=== PATIENT | female | born 1960 | race Caucasian/White ===

== ENCOUNTER 2020-07-11 07:47 | Outpatient (REF) | payer OTHER, SELFPAY ==
[2020-07-11 07:56] LABS: MANUAL DIFF FLAG NO
[2020-07-11 08:20] LABS: Eosinophils Absolute Auto 0.1 X10*3/uL (0.0-0.4); Eosinophils Percent Auto 3.1 % (0-4); Hemoglobin 10.7 g/dl (12.0-16.0); Imm Gran Abs Auto 0.01 X10*3/uL (0.00-0.03); Imm Gran Pct Auto 0.3 % (0.0-0.4); Lymphocytes Absolute Auto 1.2 X10*3/uL (1.2-4.9); Lymphocytes Percent Auto 29.9 % (20-40); Mean Corpuscular HGB Conc 31.5 g/dl (31.0-35.0); Mean Corpuscular Hemoglobin 25.6 pg (27.0-33.0); Mean Corpuscular Volume 81.3 fL (80-98); Mean Platelet Volume 9.9 fL (9.4-12.3); Monocytes Absolute Auto 0.4 X10*3/uL (0.1-1.2); Monocytes Percent Auto 11.2 % (2-11); Neutrophils Absolute Auto 2.1 X10*3/uL (2.0-8.3); Neutrophils Percent Auto 54.5 % (45-73); Platelet Count 303 X10*3/uL (160-400); Red Blood Count 4.18 X10*6/uL (4.20-5.50); Red Cell Distribution Width 18.5 % (11.0-16.0); White Blood Count 3.8 X10*3/uL (4.8-10.8)
[2020-07-11 08:45] LABS: Alanine Aminotransferase 16 U/L (0-31); Alkaline Phosphatase 63 U/L (39-117); Anion Gap 11 (12-20); Aspartate Amino Transferase 19 U/L (5-31); Bilirubin Total 0.3 mg/dL (0.0-1.0); Blood Urea Nitrogen 13 mg/dL (9-16); Calcium 8.7 mg/dL (8.4-10.2); Carbon Dioxide 24 mmol/L (22-29); Chloride 104 mmol/L (96-108); Estimated Glomerular Filt Rate > 60; Glucose Random 91 mg/dL (60-115); Potassium 4.3 mmol/l (3.3-5.1); Sodium 135 mmol/L (135-145); Total Protein 5.8 g/dL (6.5-8.0)
[2020-07-11 09:18] LABS: Ferritin 89 ng/mL (10-250)
== END 2020-07-11 07:48 | disposition home or self-care (01) ==
LOC: HO.MDS 07:47
PROVIDERS: PCP Internal Medicine; Visit Provider Internal Medicine Medical Oncology
DX: D50.9 Iron deficiency anemia, unspecified (principal)
CPT/HCPCS: 36415; 80053; 82728; 85025; 96365; J2916

== ENCOUNTER 2021-04-05 12:24 | Outpatient (REF) | payer OTHER, SELFPAY ==
[2021-04-05 13:44] LABS: MANUAL DIFF FLAG NO
[2021-04-05 13:58] LABS: Basophils Absolute Auto 0.1 X10*3/uL (0.0-0.2); Eosinophils Absolute Auto 0.1 X10*3/uL (0.0-0.4); Eosinophils Percent Auto 2.4 % (0-4); Hematocrit 33.4 % (37-47); Imm Gran Abs Auto 0.01 X10*3/uL (0.00-0.03); Imm Gran Pct Auto 0.2 % (0.0-0.4); Lymphocytes Absolute Auto 1.3 X10*3/uL (1.2-4.9); Lymphocytes Percent Auto 24.9 % (20-40); Mean Corpuscular HGB Conc 32.9 g/dl (31.0-35.0); Mean Corpuscular Hemoglobin 29.1 pg (27.0-33.0); Mean Corpuscular Volume 88.4 fL (80-98); Mean Platelet Volume 9.9 fL (9.4-12.3); Monocytes Absolute Auto 0.7 X10*3/uL (0.1-1.2); Monocytes Percent Auto 13.7 % (2-11); Neutrophils Percent Auto 57.8 % (45-73); Platelet Count 325 X10*3/uL (160-400); Red Blood Count 3.78 X10*6/uL (4.20-5.50); Red Cell Distribution Width 14.1 % (11.0-16.0); White Blood Count 5.1 X10*3/uL (4.8-10.8)
[2021-04-05 14:19] LABS: Alanine Aminotransferase 18 U/L (0-31); Alkaline Phosphatase 72 U/L (39-117); Anion Gap 11 (12-20); Aspartate Amino Transferase 22 U/L (5-31); Blood Urea Nitrogen 17 mg/dL (9-16); Calcium 8.9 mg/dL (8.4-10.2); Carbon Dioxide 28 mmol/L (22-29); Chloride 98 mmol/L (96-108); Estimated Glomerular Filt Rate > 60; Glucose Random 76 mg/dL (60-115); Iron 54 mcg/dL (30-160); Percent Iron Saturation 14 % (15-50); Potassium 4.5 mmol/L (3.3-5.1); Sodium 132 mmol/L (135-145); Total Iron Binding Capacity 378 mcg/dL (228-428); Total Protein 5.7 g/dL (6.5-8.0); Unsaturated Iron Binding 324 ug/dL
[2021-04-05 14:35] LABS: Ferritin 21 ng/mL (10-250)
[2021-04-05 17:00] LABS: Bilirubin Total 0.2 mg/dL (0.0-1.0)
== END 2021-04-05 12:25 | disposition home or self-care (01) ==
LOC: HO.LAB 12:24
PROVIDERS: Visit Provider Internal Medicine Medical Oncology
DX: D50.9 Iron deficiency anemia, unspecified (principal)
CPT/HCPCS: 36415; 80053; 82728; 83540; 85025

== ENCOUNTER → 2021-04-06 08:27 | Outpatient (BNV) | payer OTHER, SELFPAY | PROVIDERS: PCP Internal Medicine; Visit Provider Internal Medicine Medical Oncology | DX: D50.9 Iron deficiency anemia, unspecified (principal) | CPT/HCPCS: 99212; 99213; 99214 ==

== ENCOUNTER 2021-04-21 13:06 | Outpatient (REF) | payer OTHER, SELFPAY | END 2021-04-21 13:07 | disposition home or self-care (01) | LOC: HO.MDS 13:06 | PROVIDERS: Visit Provider Internal Medicine Medical Oncology | DX: D50.9 Iron deficiency anemia, unspecified (principal) | CPT/HCPCS: 96365; J1439 ==

== ENCOUNTER 2021-05-01 08:02 | Outpatient (REF) | payer OTHER, SELFPAY | END 2021-05-01 08:03 | disposition home or self-care (01) | LOC: HO.MDS 08:02 | PROVIDERS: Visit Provider Internal Medicine Medical Oncology | DX: D50.9 Iron deficiency anemia, unspecified (principal) | CPT/HCPCS: 96365; J1439 ==

== ENCOUNTER 2021-10-18 08:27 | Outpatient (REF) | payer OTHER, SELFPAY | END 2021-10-18 08:28 | disposition home or self-care (01) | LOC: HO.MDS 08:27 | PROVIDERS: Visit Provider Internal Medicine Medical Oncology | DX: D50.9 Iron deficiency anemia, unspecified (principal); K51.90 Ulcerative colitis, unspecified, without complications | CPT/HCPCS: 96365; J1439 ==

== ENCOUNTER 2021-10-26 07:30 | Outpatient (REF) | payer OTHER, SELFPAY | END 2021-10-26 07:31 | disposition home or self-care (01) | LOC: HO.MDS 07:30 | PROVIDERS: Visit Provider Internal Medicine Medical Oncology | DX: D50.9 Iron deficiency anemia, unspecified (principal) | CPT/HCPCS: 96365; J1439 ==

== ENCOUNTER 2022-01-15 13:24 | Outpatient (REF) | payer OTHER, SELFPAY | END 2022-01-15 13:25 | disposition home or self-care (01) | LOC: HO.MDS 13:24 | PROVIDERS: Visit Provider Internal Medicine Medical Oncology | DX: D50.9 Iron deficiency anemia, unspecified (principal) | CPT/HCPCS: 96365; J1439 ==

== ENCOUNTER 2022-01-24 07:36 | Outpatient (REF) | payer OTHER, SELFPAY | END 2022-01-24 07:37 | disposition home or self-care (01) | LOC: HO.MDS 07:36 | PROVIDERS: Visit Provider Internal Medicine Medical Oncology | DX: D50.9 Iron deficiency anemia, unspecified (principal); G25.81 Restless legs syndrome | CPT/HCPCS: 96365; J1439 ==

== ENCOUNTER 2022-11-16 08:26 | Outpatient (AMB) | payer OTHER, SELFPAY ==
--- NOTE | 2022-11-16 08:29 | A.OFFPC_ITS ---
Vital Signs 11/16/22 08:31 Height 5 ft 7 in Weight 126 lb BMI 19.7 BP 112/64 Blood Pressure Location Lt brachial Position Sitting Pulse 67 Pulse Oximetry (%) 99 Oxygen Delivery Method Room Air Intake Visit Reasons: Physical exam Intake Note: Pt is here today for her PE Allergies No Known Allergies (No Known Allergies*) Allergy (Verified 10/13/25 13:01) Tobacco use date assessed: 11/16/22 [facility] Medical History Bilateral bunions Cervical cancer screening Immunization refused Facial basal cell cancer Osteoarthritis of hip Iron deficiency anemia Ulcerative colitis Hordeolum externum (stye) Surgical History Hx of colonoscopy H/O total colectomy H/O abdominal surgery History of total replacement of both hip joints Status post Mohs surgery for basal cell carcinoma Hx of colectomy History of left hip replacement Family History Sister Multiple sclerosis Alcoholism Substance use disorder Mental health disorder Father Hypertension Substance use disorder Brother Lymphoma Substance use disorder Mental health disorder Paternal Aunt Substance use disorder Social History Household Members: Spouse Housing: House Are you a primary hospice care sales consultant to a significant other at home: No Do you presently have visiting nurse or other home services: No Alcohol intake: never Patient Tobacco Use Status: Never used Tobacco e-Cigarette/Vaping Use: Never Used Second Hand Smoke Exposure: No Use of substances other than those prescribed or required for medical reasons: No Have you been hit, kicked, punched, or otherwise hurt by someone within the past year? If so, by whom?: No Are you DNR?: No Advance Directives: No Advance Directives Information Provided: Yes Advance Directives on File: No Patient : No : No service: No Current occupational status: employed Cognitive needs: No Hearing needs: No Vision needs: Yes Questionnaire PHQ-9 Over the last 2 weeks, how often have you been bothered by any of the following problems? 1. Little interest or pleasure in doing things: not at all 2. Feeling down, depressed, or hopeless: not at all 3. Trouble falling or staying asleep, or sleeping too much: not at all 4. Feeling tired or having little energy: not at all 5. Poor appetite or overeating: not at all 6. Feeling bad about yourself - or that you are a failure or have let yourself or your family down: not at all 7. Trouble concentrating on things, such as reading the newspaper or watching television: not at all 8. Moving or speaking so slowly that other people could have noticed. Or the opposite - being so fidgety or restless that you have been moving around a lot more than usual: not at all 9. Thoughts that you would be better off or of hurting yourself in some way: not at all Total score: 0 Source: Developed by Drs. Braulio Huddleston, Codie Lee, Kobi Negron and colleagues, with an educational ismael from [employer]. Thrive Questionnaire Date Thrive assessed: 11/16/22 I am a: Patient What is your living situation today?: I have a steady place to live Within the past 12 months, did the food you bought not last and you didn't have the money to get more?: Never true Within the past 12 months, did you worry whether your food would run out before you got money to buy more?: Never true Do you have trouble paying for medicines?: No Do you have trouble getting transportation to medical appointments?: No Do you have trouble paying your heating and electricity bill?: No Do you have trouble taking care of your child, family member or friend?: No Do you have trouble with day-to-day activities such as bathing, preparing meals, shopping, managing finances, etc.?: No Are you currently unemployed and looking for a job?: No Are you interested in more education?: No AUDIT C Alcohol Use Questionnaire (AUDIT-C) 1. How often do you have a drink containing alcohol?: Monthly or less 2. How many drinks containing alcohol do you have on a typical day when you are drinking?: 1 or 2 3. How often do you have six or more drinks on one occasion?: Never Total Score: 1 CHRISTIANO-7 AMB Questionnaire CHRISTIANO-7 Date CHRISTIANO - 7 assessed: 02/10/23 Feeling nervous, anxious, or on edge: 0 = Not at all Not being able to stop or control worryin = Not at all Worrying too much about different things: 0 = Not at all Trouble relaxin = Not at all Being so restless that it is hard to sit still: 0 = Not at all Becoming easily annoyed or irritable: 0 = Not at all Feeling afraid as if something awful might happen: 0 = Not at all Total CHRISTIANO-7 score (0-4 normal; 5-9 mild; 10-14 moderate; 15-21 severe): 0 Source: Developed by Drs. Braulio Huddleston, Codie Lee, Kobi Negron and colleagues, with an educational ismael from [employer]. Physical exam (Primary Care) Vital Signs: Last Vital Signs Pulse 67 11/16/22 08:31 BP 112/64 11/16/22 08:31 Pulse Ox 99 11/16/22 08:31 Oxygen Delivery Method Room Air 11/16/22 08:31 BMI result Body Mass Index 19.7 Tobacco/Smoking Status: Tobacco use Status Tobacco use date assessed 11/16/22 11/16/22 08:31 Patient Tobacco Use Status Never used Tobacco 11/16/22 08:35 e-Cigarette/Vaping Use Never Used 11/16/22 08:35 PHQ-9: PHQ-9 Score PHQ-9: Total score 0 11/20/23 16:37 Thrive Assessment: Date of Thrive Assessment Date Thrive assessed 11/16/22 11/16/22 08:42 Coding Level of Care Code Admin Sign Off/No Billing Diagnoses Iron deficiency anemia D50.9 Ulcerative colitis K51.90 Annual visit for general adult medical examination with abnormal findings Z00.01 Cervical cancer screening Z12.4
[2022-11-16 08:31] VITALS: BP 112/64; PULSE 67; O2SAT 99; BMI 19.7
--- NOTE | 2022-11-16 08:46 | A.OFFPC_ITS ---
Vital Signs 11/16/22 08:31 Height 5 ft 7 in Weight 126 lb BMI 19.7 BP 112/64 Blood Pressure Location Lt brachial Position Sitting Pulse 67 Pulse Oximetry (%) 99 Oxygen Delivery Method Room Air Intake Visit Reasons: Physical exam Allergies No Known Allergies [No Known Allergies*] Allergy (Verified 11/16/22 08:29) Tobacco use date assessed: 11/16/22 [facility] Medical History (Updated 11/16/22 @ 13:55 by Opal Velazquez MD) Cervical cancer screening Facial basal cell cancer Hordeolum externum (stye) Immunization refused Iron deficiency anemia Osteoarthritis of hip Ulcerative colitis Surgical History (Updated 11/16/22 @ 09:30 by Opal Velazquez MD) History of left hip replacement History of total replacement of both hip joints Hx of colectomy Status post Mohs surgery for basal cell carcinoma Family History Sister Multiple sclerosis Alcoholism Father Hypertension Brother Lymphoma Social History Housing: House Alcohol intake: never Patient Tobacco Use Status: Never used Tobacco e-Cigarette/Vaping Use: Never Used service: No Current occupational status: employed Cognitive needs: No Hearing needs: No Vision needs: Yes Questionnaire PHQ-9 Over the last 2 weeks, how often have you been bothered by any of the following problems? 1. Little interest or pleasure in doing things: not at all 2. Feeling down, depressed, or hopeless: not at all 3. Trouble falling or staying asleep, or sleeping too much: not at all 4. Feeling tired or having little energy: not at all 5. Poor appetite or overeating: not at all 6. Feeling bad about yourself - or that you are a failure or have let yourself or your family down: not at all 7. Trouble concentrating on things, such as reading the newspaper or watching television: not at all 8. Moving or speaking so slowly that other people could have noticed. Or the opposite - being so fidgety or restless that you have been moving around a lot more than usual: not at all 9. Thoughts that you would be better off or of hurting yourself in some way: not at all Total score: 0 Source: Developed by Drs. Braulio Huddleston, Kobi Snow and colleagues, with an educational ismael from [employer]. Thrive Questionnaire Declines Thrive assessment: No Date Thrive assessed: 11/16/22 I am a: Patient What is your living situation today?: I have a steady place to live Within the past 12 months, did the food you bought not last and you didn't have the money to get more?: Never true Within the past 12 months, did you worry whether your food would run out before you got money to buy more?: Never true Do you have trouble paying for medicines?: No Do you have trouble getting transportation to medical appointments?: No Do you have trouble paying your heating and electricity bill?: No Do you have trouble taking care of your child, family member or friend?: No Do you have trouble with day-to-day activities such as bathing, preparing meals, shopping, managing finances, etc.?: No Are you currently unemployed and looking for a job?: No Are you interested in more education?: No AUDIT C Alcohol Use Questionnaire (AUDIT-C) 1. How often do you have a drink containing alcohol?: Monthly or less 2. How many drinks containing alcohol do you have on a typical day when you are drinking?: 1 or 2 3. How often do you have six or more drinks on one occasion?: Never Total Score: 1 CHRISTIANO-7 AMB Questionnaire CHRISTIANO-7 Date CHRISTIANO - 7 assessed: 11/16/22 Feeling nervous, anxious, or on edge: 0 = Not at all Not being able to stop or control worryin = Not at all Worrying too much about different things: 0 = Not at all Trouble relaxin = Not at all Being so restless that it is hard to sit still: 0 = Not at all Becoming easily annoyed or irritable: 0 = Not at all Feeling afraid as if something awful might happen: 0 = Not at all Total CHRISTIANO-7 score (0-4 normal; 5-9 mild; 10-14 moderate; 15-21 severe): 0 Source: Developed by Codie Thomas Kurt Kroenke and colleagues, with an educational ismael from [employer]. Review of Systems Const Denies chills, Denies fever(s) and Denies headache(s) Eyes Details: Sees Dr. Harris at [facility] Denies change in vision and Denies eye discharge ENT Reports no additional complaints and Denies headache(s) Card Reports no additional complaints Resp Reports no additional complaints GI Denies abdominal pain, Reports bloating (Occasional), Denies change in bowel habits, Denies dyspepsia and Denies heartburn Reports change in libido, Denies difficulty voiding, Denies nocturia, Denies urinary incontinence, Denies urinary urgency and Reports vaginal dryness Neuro Denies headache(s) Psych Reports change in libido Endo Reports change in libido Leandro/Lymph Reports no additional complaints Aller/Immun Reports no additional complaints Physical exam (Primary Care) Vital Signs: Last Vital Signs Pulse 67 11/16/22 08:31 BP 112/64 11/16/22 08:31 Pulse Ox 99 11/16/22 08:31 Oxygen Delivery Method Room Air 11/16/22 08:31 BMI result Body Mass Index 19.7 Tobacco/Smoking Status: Tobacco use Status Tobacco use date assessed 11/16/22 11/16/22 08:46 Patient Tobacco Use Status Never used Tobacco 11/16/22 08:46 e-Cigarette/Vaping Use Never Used 11/16/22 08:46 PHQ-9: PHQ-9 Score PHQ-9: Total score 0 11/16/22 09:19 Thrive Assessment: Date of Thrive Assessment Date Thrive assessed 11/16/22 11/16/22 08:46 Const General: cooperative, healthy appearing, comfortable and no acute distress Nutritional Appearance: average body habitus Orientation/consciousness: patient oriented x3 HENMT Ears: hearing grossly normal bilaterally, external ears normal, TM's normal bilaterally and EAC's normal General nose exam: Normal external nose present Face and sinus: Yes face symmetric Mouth: Normal oral and palatal mucosa present and oropharynx normal Cardio Bruits: no abdominal aortic bruits GI Inspection: Yes normal to inspection Palpation (GI): No Abdominal aortic bruit present, Soft to palpation, nontender, no guarding and no masses Auscultation: normal bowel sounds Other: Flattened vaginal mucosa, scant vaginal discharge General: Yes bladder normal to palpation and Yes no CVA tenderness External Female Exam: normal external appearance and normal appearance of the urethra Speculum Exam - Vagina: normal appearance of the vagina and normal palpation Speculum Exam - Cervix: normal appearance of the cervix, normal palpation, Cervical os open and nontender Bimanual exam- vagina & uterus: normal palpation, bladder normal to palpation, normal palpation and No Cervical tenderness present Bimanual Exam- Adnexa, other: normal adnexae, no masses, normal and No adnexal tenderness OB/external & speculum: Cervical os open Back/Spine/Pelvis Back: no CVA tenderness Skin Other: Sees [facility] yearly General skin exam: no rashes or lesions noted Neuro General: patient oriented x3, gait normal, tone normal, moves all extremities, Normal light touch and pain sensation, no focal motor deficits and CN's II-XI intact bilaterally Gait exam (Neuro): Normal gait present Extrem Other: Well-healed surgical scar in both hip status post THR bilateral General: Yes normal to inspection, Yes full ROM, Yes no joint enlargement, Yes no clubbing, cyanosis or edema, Yes no calf tenderness and Yes normal gait Psych Appearance: grossly normal and well kempt Mental Status: mental status grossly normal Speech and movement: Normal speech and movement present Affect: normal affect Attitude: cooperative Thought process: Normal thought process present Thought content: Normal thought content present Assessment and Plan Assessment & Plan (1) Annual visit for general adult medical examination with abnormal findings: Code(s): Z00.01 - Encounter for general adult medical examination with abnormal findings Plan: Will check appropriate labs. Continue with dental visit every 6 months and regular eye exams, at least every 2 years, sees Dr. Harris at [facility]. Take adequate calcium in diet and vitamin-D 3 at 2000 IU per cap once a day, in addition to weight-bearing exercises to help maintain good muscle tone and weight control. Continue to do self-breast exam, and screening mammogram and bone density scan ordered, patient wants to get this done at [facility]. Does not want to get any vaccines. Has an appointment with a colorectal surgeon for follow-up at [facility]. Cervical Cancer screening done today (2) Iron deficiency anemia: Code(s): D50.9 - Iron deficiency anemia, unspecified Plan: CBC, iron profile ferritin ordered. Continue taking ferrous sulfate (3) Ulcerative colitis: Code(s): K51.90 - Ulcerative colitis, unspecified, without complications Plan: Patient has an appointment to see colorectal surgeon at [facility] Dr. Patricia Chapin for follow-up (4) Immunization refused: Code(s): Z28.21 - Immunization not carried out because of patient refusal (5) Cervical cancer screening: Code(s): Z12.4 - Encounter for screening for malignant neoplasm of cervix Coding Level of Care Code Est Pt Prev Care 40-64y([id number]) Diagnoses Annual visit for general adult medical examination with abnormal findings Z00.01 Iron deficiency anemia D50.9 Ulcerative colitis K51.90 Immunization refused Z28.21 Cervical cancer screening Z12.4
== END 2022-11-16 09:20 | disposition home or self-care (01) ==
LOC: HO.HMGC 08:26
PROVIDERS: PCP Internal Medicine; Visit Provider Internal Medicine
DX: D50.9 Iron deficiency anemia, unspecified (principal); K51.90 Ulcerative colitis, unspecified, without complications; Z00.01 Encounter for general adult medical examination with abnormal findings; Z12.4 Encounter for screening for malignant neoplasm of cervix
CPT/HCPCS: 99499

== ENCOUNTER 2022-11-16 08:49 | Outpatient (REF) | payer OTHER, SELFPAY ==
[2022-11-20 04:18] LABS: HPV mRNA E6/E7 rflx Not Detected (Not Detected)
== END 2022-11-16 08:50 | disposition home or self-care (01) ==
LOC: HO.LAB 08:49
PROVIDERS: Visit Provider Internal Medicine
DX: Z12.4 Encounter for screening for malignant neoplasm of cervix (principal); Z11.51 Encounter for screening for human papillomavirus (HPV)
CPT/HCPCS: 87624; 88142

== ENCOUNTER 2022-11-16 09:25 | Outpatient (REF) | payer OTHER, SELFPAY ==
[2022-11-16 11:33] LABS: MANUAL DIFF FLAG NO
[2022-11-16 11:48] LABS: Basophils Percent Auto 0.8 % (0-2); Eosinophils Absolute Auto 0.1 X10*3/uL (0.0-0.4); Eosinophils Percent Auto 1.8 % (0-4); Hematocrit 37.5 % (37.0-47.0); Hemoglobin 12.6 g/dl (12.0-16.0); Imm Gran Abs Auto 0.03 X10*3/uL (0.00-0.03); Imm Gran Pct Auto 0.8 % (0.0-0.4); Lymphocytes Percent Auto 24.4 % (20-40); Mean Corpuscular HGB Conc 33.6 g/dl (31.0-35.0); Mean Corpuscular Hemoglobin 29.6 pg (27.0-33.0); Mean Corpuscular Volume 88.2 fL (80.0-98.0); Mean Platelet Volume 9.9 fL (9.4-12.3); Monocytes Absolute Auto 0.5 X10*3/uL (0.1-1.2); Monocytes Percent Auto 13.4 % (2-11); Neutrophils Absolute Auto 2.3 x10*3/uL (2.0-8.3); Neutrophils Percent Auto 58.8 % (45-73); Platelet Count 312 X10*3/uL (160-400); Red Blood Count 4.25 X10*6/uL (4.20-5.50); Red Cell Distribution Width 13.1 % (11.0-16.0); White Blood Count 3.9 X10*3/uL (4.8-10.8)
[2022-11-16 12:34] LABS: Alanine Aminotransferase 16 U/L (0-31); Anion Gap 13 (12-20); Aspartate Amino Transferase 20 U/L (5-31); Blood Urea Nitrogen 8 mg/dL (9-16); Calcium 9.3 mg/dL (8.4-10.2); Carbon Dioxide 25 mmol/L (22-29); Chloride 101 mmol/L (96-108); Cholesterol 240 mg/dL; Estimated Glomerular Filt Rate > 60; Glucose Fasting 97 mg/dL (60-99); HDL Cholesterol 99 mg/dL; Iron 47 mcg/dL (30-160); LDL Cholesterol Calculated 128 mg/dl; Percent Iron Saturation 18 % (15-50); Potassium 4.5 mmol/L (3.3-5.1); Sodium 134 mmol/L (135-145); Total Iron Binding Capacity 262 mcg/dL (228-428); Triglycerides 65 mg/dL; Unsaturated Iron Binding 215 ug/dL
[2022-11-16 12:52] LABS: Ferritin 381 ng/mL (10-250); Folate > 20.0 ng/mL (> or = 4.0); Vitamin B12 772 pg/mL (200-900)
== END 2022-11-16 09:26 | disposition home or self-care (01) ==
LOC: HO.HMGCLDS 09:25
PROVIDERS: PCP Internal Medicine; Visit Provider Internal Medicine
DX: Z00.01 Encounter for general adult medical examination with abnormal findings (principal); D50.9 Iron deficiency anemia, unspecified; K51.90 Ulcerative colitis, unspecified, without complications; N95.1 Menopausal and female climacteric states
CPT/HCPCS: 36415; 80048; 80061; 82306; 82607; 82728; 82746; 83540; 84450; 84460; 85025

== ENCOUNTER 2023-07-23 08:27 | Outpatient (REF) | payer OTHER, SELFPAY | END 2023-07-23 08:28 | disposition home or self-care (01) | LOC: HO.MDS 08:27 | PROVIDERS: Visit Provider Internal Medicine Medical Oncology | DX: D50.8 Other iron deficiency anemias (principal) | CPT/HCPCS: 96365; J1439 ==

== ENCOUNTER 2023-07-30 08:11 | Outpatient (REF) | payer OTHER, SELFPAY | END 2023-07-30 08:12 | disposition home or self-care (01) | LOC: HO.MDS 08:11 | PROVIDERS: Visit Provider Internal Medicine Medical Oncology | DX: D50.8 Other iron deficiency anemias (principal) | CPT/HCPCS: 96365; J1439 ==

== ENCOUNTER 2023-11-21 07:57 | Outpatient (AMB) | payer OTHER, SELFPAY ==
--- NOTE | 2023-11-21 08:02 | A.OFFPC_ITS ---
Vital Signs 11/21/23 08:03 Height 5 ft 7 in Weight 124 lb BMI 19.4 BP 100/68 Blood Pressure Location Rt brachial Position Sitting Pulse 69 Pulse Source Pulse Oximeter Pulse Oximetry (%) 100 Oxygen Delivery Method Room Air Intake Visit Reasons: Physical exam Intake Note: Pt is here for her Annual PE pt had mammo last year at [facility] pt does not due colon screen she does pouch screening Allergies No Known Allergies [No Known Allergies*] Allergy (Verified 11/21/23 08:15) Medication List - Last Reconciled 11/21/23 by Opal Velazquez MD B-complex with vitamin C 1 tab PO DAILY ferrous sulfate 325 mg PO DAILY multivitamin 1 tab PO DAILY omega-3 fatty acids 500 mg PO DAILY pramipexole 0.25 mg PO BEDTIME Tobacco use date assessed: 11/21/23 Dental Screening Dental Screen Date: 11/21/23 Did you have a dental visit in the last 12 months?: Yes Did you have a dental problem in the last 6 months where you did not have access to dental care?: No Was dental information given to patient?: Patient has dentist HPI Physical exam HPI Details 63-year-old lady here today for physical exam. She is up-to-date with her screening mammogram and cervical cancer screening, done last year. She has history of osteoarthritis, status post right and left total hip arthroplasty and has history of basal cell CA status post Mohs surgery. She has history of ulcerative colitis underwent laparoscopic proctocolectomy with ileal pouch anal anastomosis over a decade ago, complicated by partial small-bowel obstruction for 5 weeks which required return to the operating room for exploration and reversal of her ileostomy. She has since then had multiple admissions for intermittent small-bowel obstruction. She was admitted last January 2023 for elective surgery and underwent diagnostic laparoscopy and found to have adhesions in her small bowel for which she underwent lysis of adhesions with Dr. Chapin. She again was seen at [facility] 08/2023 for severe lower abdominal pain and bloating and found to have small-bowel volvulus with early obstruction, which shows treated with NG tube decompression of bowel. At present she is feeling better, has been very careful with her diet, weeks year old meals, stays active. [facility] Medical History (Updated 11/24/23 @ 23:11 by Opal Velazquez MD) Cervical cancer screening Immunization refused Facial basal cell cancer Osteoarthritis of hip Iron deficiency anemia Ulcerative colitis Hordeolum externum (stye) Surgical History (Updated 11/21/23 @ 08:39 by Opal Velazquez MD) H/O total colectomy H/O abdominal surgery History of total replacement of both hip joints Status post Mohs surgery for basal cell carcinoma Hx of colectomy History of left hip replacement Family History Sister Multiple sclerosis Alcoholism Father Hypertension Brother Lymphoma Social History Housing: House Alcohol intake: never Patient Tobacco Use Status: Never used Tobacco e-Cigarette/Vaping Use: Never Used service: No Current occupational status: employed Cognitive needs: No Hearing needs: No Vision needs: Yes Questionnaire PHQ-9 Over the last 2 weeks, how often have you been bothered by any of the following problems? 1. Little interest or pleasure in doing things: not at all 2. Feeling down, depressed, or hopeless: not at all 3. Trouble falling or staying asleep, or sleeping too much: not at all 4. Feeling tired or having little energy: not at all 5. Poor appetite or overeating: not at all 6. Feeling bad about yourself - or that you are a failure or have let yourself or your family down: not at all 7. Trouble concentrating on things, such as reading the newspaper or watching television: not at all 8. Moving or speaking so slowly that other people could have noticed. Or the opposite - being so fidgety or restless that you have been moving around a lot more than usual: not at all 9. Thoughts that you would be better off or of hurting yourself in some way: not at all Total score: 0 Depression Screening Interpretation: Negative Depression Screening Done: Yes Source: Developed by Drs. Braulio Huddleston, Codie Lee, Kobi Negron and colleagues, with an educational ismael from [employer]. Thrive Questionnaire Date Thrive assessed: 11/21/23 I am a: Patient What is your living situation today?: I have a steady place to live Within the past 12 months, did the food you bought not last and you didn't have the money to get more?: Never true Within the past 12 months, did you worry whether your food would run out before you got money to buy more?: Never true Do you have trouble paying for medicines?: No Do you have trouble getting transportation to medical appointments?: No Do you have trouble paying your heating and electricity bill?: No Do you have trouble taking care of your child, family member or friend?: No Do you have trouble with day-to-day activities such as bathing, preparing meals, shopping, managing finances, etc.?: No Are you currently unemployed and looking for a job?: No Are you interested in more education?: No THRIVE Score: 0 AUDIT C Alcohol Use Questionnaire (AUDIT-C) 1. How often do you have a drink containing alcohol?: Monthly or less 2. How many drinks containing alcohol do you have on a typical day when you are drinking?: 1 or 2 3. How often do you have six or more drinks on one occasion?: Never Total Score: 1 CHRISTIANO-7 AMB Questionnaire CHRISTIANO-7 Date CHRISTIANO - 7 assessed: 11/21/23 Feeling nervous, anxious, or on edge: 0 = Not at all Not being able to stop or control worryin = Not at all Worrying too much about different things: 0 = Not at all Trouble relaxin = Not at all Being so restless that it is hard to sit still: 0 = Not at all Becoming easily annoyed or irritable: 0 = Not at all Feeling afraid as if something awful might happen: 0 = Not at all Total CHRISTIANO-7 score (0-4 normal; 5-9 mild; 10-14 moderate; 15-21 severe): 0 Source: Developed by Drs. Braulio Huddleston, Codie Lee, Kobi Negron and colleagues, with an educational ismael from [employer]. CHRISTIANO-7 Assessment Billing CHRISTIANO-7 Assessment Tool: CHRISTIANO-7 Assessment 81551 Review of Systems Const Denies chills, Denies fever(s) and Denies headache(s) Eyes Denies change in vision ENT Denies dysphagia and Denies headache(s) Resp Reports no additional complaints GI Denies abdominal pain, Denies melena, Denies bloating, Denies hematochezia, Denies dysphagia, Denies excessive flatus and Denies heartburn Reports no additional complaints Musc Reports no additional complaints Skin/Breast Denies breast swelling, Denies breast pain, Denies breast mass, Denies dry skin and Denies rash Neuro Denies headache(s) Psych Reports no additional complaints Endo Reports no additional complaints Leandro/Lymph Reports no additional complaints Aller/Immun Reports no additional complaints Physical exam (Primary Care) Vital Signs: Last Vital Signs Pulse 69 11/21/23 08:03 BP 100/68 11/21/23 08:03 Pulse Ox 100 11/21/23 08:03 Oxygen Delivery Method Room Air 11/21/23 08:03 BMI result Body Mass Index 19.4 Tobacco/Smoking Status: Tobacco use Status Tobacco use date assessed 11/21/23 11/21/23 08:12 Patient Tobacco Use Status Never used Tobacco 11/21/23 08:02 e-Cigarette/Vaping Use Never Used 11/21/23 08:02 PHQ-9: PHQ-9 Score PHQ-9: Total score 0 11/21/23 08:55 Depression Screening Interpretation: Negative Thrive Assessment: Date of Thrive Assessment Date Thrive assessed 11/21/23 11/21/23 08:14 Const General: no acute distress and alert Nutritional Appearance: average body habitus Orientation/consciousness: patient oriented x3 HENMT Head: Yes normocephalic and Yes atraumatic Ears: external ears normal, TM's normal bilaterally and EAC's normal General nose exam: Normal external nose present and No nasal discharge present Face and sinus: Yes face symmetric Mouth: Normal oral and palatal mucosa present, lip normal, tongue normal, oropharynx normal and moist mucous membranes Eyes General: appearance normal, both eyes and all related structures Eyelids: Yes eyelids normal Conjunctivae: conjunctivae normal Sclerae: sclerae normal Pupils: Equal, round and reactive pupils present EOM: EOMs intact bilaterally Neck Neck: Yes full ROM, Yes no lymphadenopathy and Yes supple Thyroid: Thyroid normal Chest Chest palpation & inspection: normal inspection of the chest Breast/axilla inspection: normal inspection of the breasts Breast/axilla palpation: normal palpation of the breasts Resp Effort & Inspection: normal respiratory effort and able to speak in complete sentences Auscultation: clear to auscultation bilaterally Cardio Rate: regular rate Rhythm: regular rhythm Heart sounds: S1 normal heart sound present and S2 normal heart sound present GI Palpation (GI): Soft to palpation, nontender, no guarding and no masses Auscultation: normal bowel sounds General: Yes no CVA tenderness Back/Spine/Pelvis Back: no CVA tenderness and No back tenderness Skin General skin exam: no rashes or lesions noted Neuro General: patient oriented x3, gait normal, moves all extremities, Normal light touch and pain sensation, no focal motor deficits and CN's II-XI intact bilaterally Cranial nerves: Yes Equal, round and reactive pupils present Cognition (Neuro): normal cognition Gait exam (Neuro): Normal gait present Motor exam (neuro): 5/5 motor strength present throughout Extrem General: Yes normal to inspection, Yes full ROM, Yes no joint enlargement, Yes no pedal edema and Yes normal gait Psych Appearance: grossly normal and well kempt Mental Status: mental status grossly normal Speech and movement: Normal speech and movement present Affect: normal affect Attitude: cooperative Thought process: Normal thought process present Thought content: Normal thought content present Assessment and Plan Assessment & Plan (1) Annual visit for general adult medical examination with abnormal findings: Code(s): Z00.01 - Encounter for general adult medical examination with abnormal findings Plan: Will check appropriate labs. Continue regular dental visit every 6 months and regular eye exams, at least every 2 years. Take adequate calcium in diet and vitamin-D 3 at 2000 IU per cap once a day, in addition to weight-bearing exercises to help maintain good muscle tone and weight control. Instructed to do self-breast exam, and get yearly mammogram, currently up-to-date. Also up-to-date with her cervical cancer screening. Declines getting vaccines. (2) Iron deficiency anemia: Code(s): D50.9 - Iron deficiency anemia, unspecified Qualifiers: Iron deficiency anemia type: other iron deficiency Qualified Code(s): D50.8 - Other iron deficiency anemias Plan: Ordered a repeat CBC and iron profile (3) Ulcerative colitis: Comment: Status post total colectomy with J-pouch Code(s): K51.90 - Ulcerative colitis, unspecified, without complications Qualifiers: Digestive disease complication type: other complication Ulcerative colitis location: unspecified ulcerative colitis location Qualified Code(s): K51.918 - Ulcerative colitis, unspecified with other complication Plan: Will check CBC with differential, vitamin B12 folic acid and vitamin-D level (4) Immunization refused: Code(s): Z28.21 - Immunization not carried out because of patient refusal Plan: Will check CBC vitamin, B12 and folic acid (5) H/O total colectomy: Code(s): Z90.49 - Acquired absence of other specified parts of digestive tract Plan: Will check electrolytes, vitamin B12, vitamin-D folic acid and magnesium level Orders: Orders Comprehensive [place]. Panel Fast 11/21/23 D50.9 - Iron deficiency anemia, unspecified, K51.90 - Ulcerative colitis, unspecified, without complications, M16.9 - Osteoarthritis of hip, unspecified, Z00.01 - Encounter for general adult medical examination with abnormal findings, Z78.0 - Asymptomatic menopausal state, Z90.49 - Acquired absence of other specified parts of digestive tract Lipid Panel 11/21/23 D50.9 - Iron deficiency anemia, unspecified, K51.90 - Ulcerative colitis, unspecified, without complications, M16.9 - Osteoarthritis of hip, unspecified, Z00.01 - Encounter for general adult medical examination with abnormal findings, Z78.0 - Asymptomatic menopausal state, Z90.49 - Acquired absence of other specified parts of digestive tract IRON PROFILE 11/21/23 D50.9 - Iron deficiency anemia, unspecified, K51.90 - Ulcerative colitis, unspecified, without complications, M16.9 - Osteoarthritis of hip, unspecified, Z00.01 - Encounter for general adult medical examination with abnormal findings, Z78.0 - Asymptomatic menopausal state, Z90.49 - Acquired absence of other specified parts of digestive tract Complete Blood Count Auto Diff 11/21/23 D50.9 - Iron deficiency anemia, unspecified, K51.90 - Ulcerative colitis, unspecified, without complications, M16.9 - Osteoarthritis of hip, unspecified, Z00.01 - Encounter for general adult medical examination with abnormal findings, Z78.0 - Asymptomatic menopausal state, Z90.49 - Acquired absence of other specified parts of digestive tract Magnesium 11/21/23 D50.9 - Iron deficiency anemia, unspecified, K51.90 - Ulcerative colitis, unspecified, without complications, M16.9 - Osteoarthritis of hip, unspecified, Z00.01 - Encounter for general adult medical examination with abnormal findings, Z78.0 - Asymptomatic menopausal state, Z90.49 - Acquired absence of other specified parts of digestive tract Vitamin B12 and Folate 11/21/23 D50.9 - Iron deficiency anemia, unspecified, K51.90 - Ulcerative colitis, unspecified, without complications, M16.9 - Osteoarthritis of hip, unspecified, Z00.01 - Encounter for general adult medical examination with abnormal findings, Z78.0 - Asymptomatic menopausal state, Z90.49 - Acquired absence of other specified parts of digestive tract Vitamin D 25-OH Total 11/21/23 D50.9 - Iron deficiency anemia, unspecified, K51.90 - Ulcerative colitis, unspecified, without complications, M16.9 - Osteoarthritis of hip, unspecified, Z00.01 - Encounter for general adult medical examination with abnormal findings, Z78.0 - Asymptomatic menopausal state, Z90.49 - Acquired absence of other specified parts of digestive tract Coding Level of Care Code Est Pt [facility] Care 40-64y([id number]) Diagnoses Annual visit for general adult medical examination with abnormal findings Z00.01 Other iron deficiency anemia D50.8 Iron deficiency anemia type: other iron deficiency Ulcerative colitis with other complication, unspecified location K51.918 Digestive disease complication type: other complication Ulcerative colitis location: unspecified ulcerative colitis location Immunization refused Z28.21 H/O total colectomy Z90.49 Additional Codes CHRISTIANO-7 Assessment Billing - CHRISTIANO-7 Assessment Tool: CHRISTIANO-7 Assessment [id number] ([id number])
[2023-11-21 08:03] VITALS: BP 100/68; PULSE 69; O2SAT 100; BMI 19.4
== END 2023-11-21 09:05 | disposition home or self-care (01) ==
PROVIDERS: Visit Provider Internal Medicine
DX: Z00.00 Encounter for general adult medical examination without abnormal findings (principal); D50.8 Other iron deficiency anemias; K51.918 Ulcerative colitis, unspecified with other complication; Z28.21 Immunization not carried out because of patient refusal; Z90.49 Acquired absence of other specified parts of digestive tract
CPT/HCPCS: 99396

== ENCOUNTER 2023-11-21 08:53 | Outpatient (REF) | payer OTHER, SELFPAY ==
[2023-11-21 11:37] LABS: MANUAL DIFF FLAG NO
[2023-11-21 11:48] LABS: Basophils Absolute Auto 0.1 X10*3/uL (0.0-0.2); Basophils Percent Auto 1.3 % (0-2); Eosinophils Absolute Auto 0.1 X10*3/uL (0.0-0.4); Eosinophils Percent Auto 2.7 % (0-4); Hematocrit 37.5 % (37.0-47.0); Hemoglobin 12.5 g/dl (12.0-16.0); Imm Gran Abs Auto 0.02 X10*3/uL (0.00-0.03); Imm Gran Pct Auto 0.5 % (0.0-0.4); Lymphocytes Percent Auto 25.4 % (20-40); Mean Corpuscular HGB Conc 33.3 g/dl (31.0-35.0); Mean Corpuscular Hemoglobin 30.5 pg (27.0-33.0); Mean Corpuscular Volume 91.5 fL (80.0-98.0); Mean Platelet Volume 9.6 fL (9.4-12.3); Monocytes Absolute Auto 0.7 X10*3/uL (0.1-1.2); Monocytes Percent Auto 17.4 % (2-11); Neutrophils Percent Auto 52.7 % (45-73); Platelet Count 324 X10*3/uL (160-400); Red Cell Distribution Width 13.5 % (11.0-16.0); White Blood Count 3.7 X10*3/uL (4.8-10.8)
[2023-11-21 12:19] LABS: Alanine Aminotransferase 17 U/L (0-31); Albumin Level 4.4 g/dL (3.5-5.0); Alkaline Phosphatase 73 U/L (39-117); Anion Gap 9 (12-20); Aspartate Amino Transferase 20 U/L (5-31); Bilirubin Total 0.4 mg/dL (0.0-1.0); Blood Urea Nitrogen 13 mg/dL (9-16); Calcium 9.4 mg/dL (8.4-10.2); Carbon Dioxide 27 mmol/L (22-29); Chloride 102 mmol/L (96-108); Cholesterol 232 mg/dL (<200); Estimated Glomerular Filt Rate > 60; Glucose Fasting 97 mg/dL (60-99); HDL Cholesterol 100 mg/dL (>40); Iron 44 mcg/dL (30-160); LDL Cholesterol Calculated 121 mg/dL (<100); Magnesium 2.4 mg/dL (1.6-2.6); Percent Iron Saturation 17 % (15-50); Potassium 4.2 mmol/L (3.3-5.1); Sodium 134 mmol/L (135-145); Total Iron Binding Capacity 264 mcg/dL (228-428); Total Protein 6.9 g/dL (6.5-8.0); Triglycerides 58 mg/dL (<150); Unsaturated Iron Binding 220 ug/dL
[2023-11-21 12:21] LABS: Vitamin D 25-OH Total 72.5 ng/mL (>30)
[2023-11-21 12:46] LABS: Folate 13.9 ng/mL (> or = 4.0); Vitamin B12 670 pg/mL (200-900)
== END 2023-11-21 08:54 | disposition home or self-care (01) ==
LOC: HO.HMGCLDS 08:53
PROVIDERS: PCP Internal Medicine; Visit Provider Internal Medicine
DX: Z00.01 Encounter for general adult medical examination with abnormal findings (principal); D50.9 Iron deficiency anemia, unspecified; K51.90 Ulcerative colitis, unspecified, without complications; M16.9 Osteoarthritis of hip, unspecified; Z90.49 Acquired absence of other specified parts of digestive tract; Z78.0 Asymptomatic menopausal state
CPT/HCPCS: 36415; 80053; 80061; 82306; 82607; 82746; 83540; 83735; 85025

== ENCOUNTER 2024-09-22 07:30 | Outpatient (RCR) | payer OTHER, SELFPAY ==
[2024-09-14 07:28] VITALS: BP 91/44; PULSE 62; RESP 14; TEMP 36.6; O2SAT 99
[2024-09-14] MEDS: Ferric Carboxymaltose 750 MG in 0.9 % Sodium Chloride 250 ML 1060 MG IV (07:53)
[2024-09-14] MEDS: 0.9 % Sodium Chloride Flush 10 ML SYRINGE 5 ML IVFLUSH (08:18)
[2024-09-22 07:31] VITALS: BP 106/65; PULSE 62; RESP 14; TEMP 36.6; O2SAT 100
[2024-09-22] MEDS: Ferric Carboxymaltose 750 MG in 0.9 % Sodium Chloride 250 ML 1060 MG IV (07:54)
[2024-09-22 08:02] LABS: Hematocrit 34.3 % (37.0-47.0); Hemoglobin 11.4 g/dl (12.0-16.0); Mean Corpuscular HGB Conc 33.2 g/dl (31.0-35.0); Mean Corpuscular Hemoglobin 28.1 pg (27.0-33.0); Mean Corpuscular Volume 84.7 fL (80.0-98.0); Platelet Count 279 X10*3/uL (160-400); Red Blood Count 4.05 X10*6/uL (4.20-5.50); Red Cell Distribution Width 14.9 % (11.0-16.0); White Blood Count 3.6 X10*3/uL (4.8-10.8)
[2024-09-22 08:40] LABS: Ferritin 1550 ng/mL (10-250)
[2024-09-22 08:46] LABS: Vitamin B12 741 pg/mL (200-900)
== END 2024-09-22 08:47 | disposition home or self-care (01) ==
LOC: HO.INF 07:30
PROVIDERS: Visit Provider Internal Medicine Medical Oncology
DX: D50.9 Iron deficiency anemia, unspecified (principal)
CPT/HCPCS: 36415; 82607; 82728; 85027; 96365; J1439

== ENCOUNTER 2024-11-30 08:45 | Outpatient (REF) | payer OTHER, SELFPAY ==
--- OUTSIDE RECORDS SUMMARY | 2024-11-30 10:25 | XMS_ITS | Encounter Summary ---
Author Organization [facility] Address [address] [place] [address] Care Team Providers Care Trekking Guide Name Role Phone Pcp, No Primary Care Provider Opal Baltazar MD Primary Care Provider [phone] Encounter Details Date Type Department Care Team (Late st Contact Info) Description 05/02/2016 Abstract [facility] Colorectal Surgery [place] [address] [facility] [address] [place] [address] Renea Trevizo, RN [address] [place] [address] Social History Tobacco Use Types Packs/Day Years Used Date Smoking Tobacco: Never Assessed Sex and Gender Information Value Date Recorded Sex Assigned at Not on file Gender Identity Not on file Sexual Orientation Not on file documented as of this encounter Plan of Treatment Not on file documented as of this encounter Visit Diagnoses Not on filedocumented in this encounter Care Teams Trekking Guide Relationship Specialty Start Date End Date Pcp, No PCP - General General Medicine 09/22/18 10/13/18 Opal Velazquez MD [address] [place] [address] PCP - General Internal Medicine 10/14/18 documented as of this encounter
--- OUTSIDE RECORDS SUMMARY | 2024-11-30 10:25 | XMS_ITS | Clinical Summary ---
Author Organization Formerly [facility] Address [address] [place] [address] Care Team Providers Care Property Insurance Inspector Name Role Phone Opal Velazquez MD Primary Care Provider [phone] Allergies No known active allergies Medications Medication [...] age to complete this topic Care Teams Property Insurance Inspector Relationship Specialty Start Date End Date Opal Velazquez MD [address] [place], [place] [phone] PCP - General Internal Medicine 10/14/18
[2024-11-30 10:37] LABS: Hematocrit 36.5 % (37.0-47.0); Hemoglobin 12.4 g/dl (12.0-16.0)
[2024-11-30 11:50] LABS: Vitamin D 25-OH Total 53.8 ng/mL (>30)
[2024-11-30 12:05] LABS: Cholesterol 214 mg/dL (<200); HDL Cholesterol 89 mg/dL (>40); Iron 63 mcg/dL (30-160); LDL Cholesterol Calculated 113 mg/dL (<100); Percent Iron Saturation 27 % (15-50); Total Iron Binding Capacity 232 mcg/dL (228-428); Triglycerides 61 mg/dL (<150); Unsaturated Iron Binding 169 ug/dL
[2024-11-30 12:17] LABS: Folate 14.6 ng/mL (> or = 4.0); Vitamin B12 733 pg/mL (200-900)
== END 2024-11-30 08:46 | disposition home or self-care (01) ==
LOC: HO.HMGCLDS 08:45
PROVIDERS: PCP Internal Medicine; Visit Provider Internal Medicine
DX: Z00.01 Encounter for general adult medical examination with abnormal findings (principal); D50.8 Other iron deficiency anemias; M21.611 Bunion of right foot; M21.612 Bunion of left foot; Z71.89 Other specified counseling; Z90.49 Acquired absence of other specified parts of digestive tract; Z28.21 Immunization not carried out because of patient refusal
CPT/HCPCS: 36415; 80061; 82306; 82607; 82746; 83540; 85014; 85018; 96127; 99396; 99497

== ENCOUNTER 2024-11-30 08:45 | Outpatient (AMB) | payer OTHER, SELFPAY ==
--- NOTE | 2024-11-30 08:52 | MHC.PC.OV ---
Vital Signs 11/30/24 08:53 Height 5 ft 7 in Weight 131 lb BMI 20.5 BP 110/70 Blood Pressure Location Lt brachial Position Sitting Respiration 15 Pulse 61 Pulse Source Pulse Oximeter Temp 98 F Temp Source Oral Pulse Oximetry (%) 98 Oxygen Delivery Method Room Air Intake Visit Reasons: Physical exam Intake Note: Pt is here today for her Physical Exam: Last mammogram 03/25/24, papsmear 11/16/22 Allergies No Known Allergies [No Known Allergies*] Allergy (Verified 11/30/24 09:07) Medication List - Last Reconciled 11/30/24 by Opal Velazquez MD B-complex with vitamin C 1 tab PO DAILY ferrous sulfate 325 mg PO DAILY magnesium 250 mg PO DAILY multivitamin 1 tab PO DAILY omega-3 fatty acids 500 mg PO DAILY pramipexole 0.25 mg PO BEDTIME Tobacco use date assessed: 11/30/24 Dental Screening Dental Screen Date: 11/30/24 Did you have a dental visit in the last 12 months?: Yes Did you have a dental problem in the last 6 months where you did not have access to dental care?: No Was dental information given to patient?: Patient has dentist HPI Physical exam HPI Details 64-year-old lady with history ulcerative colitiss/p total colectomy , osteoarthritis of hips s/p bilateral total hip arthroplasty, basal cell CA on face s/p Mohs surgery, here today for physical exam. She has been feeling well, up-to-date with her screening mammogram done 03/1924 with benign findings. She is also up-to-date with her cervical cancer screening and pelvic exam, done 11/16/2022 showing atrophic vaginal mucosa, negative for inflammation or malignancy negative for HPV. She had a dip in her hemoglobin /hematocrit last September, felt more tired than usual, received iron infusions ordered by Dr. Sanchez which afforded improvement in her symptoms. [facility] Medical History Bilateral bunions Cervical cancer screening Immunization refused Facial basal cell cancer Osteoarthritis of hip Iron deficiency anemia Ulcerative colitis Hordeolum externum (stye) Surgical History H/O total colectomy H/O abdominal surgery History of total replacement of both hip joints Status post Mohs surgery for basal cell carcinoma Hx of colectomy History of left hip replacement Family History Sister Multiple sclerosis Alcoholism Substance use disorder Mental health disorder Father Hypertension Substance use disorder Brother Lymphoma Substance use disorder Mental health disorder Paternal Aunt Substance use disorder Social History Housing: House Alcohol intake: never Patient Tobacco Use Status: Never used Tobacco e-Cigarette/Vaping Use: Never Used service: No Current occupational status: employed Cognitive needs: No Hearing needs: No Vision needs: Yes Questionnaire PHQ-9 Over the last 2 weeks, how often have you been bothered by any of the following problems? 1. Little interest or pleasure in doing things: not at all 2. Feeling down, depressed, or hopeless: not at all 3. Trouble falling or staying asleep, or sleeping too much: not at all 4. Feeling tired or having little energy: not at all 5. Poor appetite or overeating: not at all 6. Feeling bad about yourself - or that you are a failure or have let yourself or your family down: not at all 7. Trouble concentrating on things, such as reading the newspaper or watching television: not at all 8. Moving or speaking so slowly that other people could have noticed. Or the opposite - being so fidgety or restless that you have been moving around a lot more than usual: not at all 9. Thoughts that you would be better off or of hurting yourself in some way: not at all Total score: 0 Depression Screening Interpretation: Negative Depression Screening Done: Yes 64645 - PHQ-9 Billing: Yes Source: Developed by Drs. Braulio Huddleston, Codie Lee, Kobi Negron and colleagues, with an educational ismael from [employer] Thrive Questionnaire Date Thrive assessed: 11/24/24 I am a: Patient What is your living situation today?: I have a steady place to live Within the past 12 months, did the food you bought not last and you didn't have the money to get more?: Never true Within the past 12 months, did you worry whether your food would run out before you got money to buy more?: Never true Do you have trouble paying for medicines?: No Do you have trouble getting transportation to medical appointments?: No Do you have trouble paying your heating and electricity bill?: No Do you have trouble taking care of your child, family member or friend?: No Do you have trouble with day-to-day activities such as bathing, preparing meals, shopping, managing finances, etc.?: No Are you currently unemployed and looking for a job?: No Are you interested in more education?: No Please select the resources that you would like help with: None Currently or been in a relationship where the following occur: No concerns reported THRIVE Score: 0 AUDIT C Alcohol Use Questionnaire (AUDIT-C) 1. How often do you have a drink containing alcohol?: Never 3. How often do you have six or more drinks on one occasion?: Never Total Score: 0 CHRISTIANO-7 AMB Questionnaire CHRISTIANO-7 Date CHRISTIANO - 7 assessed: 11/30/24 Feeling nervous, anxious, or on edge: 0 = Not at all Not being able to stop or control worryin = Not at all Worrying too much about different things: 0 = Not at all Trouble relaxin = Not at all Being so restless that it is hard to sit still: 0 = Not at all Becoming easily annoyed or irritable: 0 = Not at all Feeling afraid as if something awful might happen: 0 = Not at all Total CHRISTIANO-7 score (0-4 normal; 5-9 mild; 10-14 moderate; 15-21 severe): 0 Source: Developed by Drs. Braulio Huddleston, Codie Lee, Kobi Negron and colleagues, with an educational ismael from [employer] CHRISTIANO-7 Assessment Billing CHRISTIANO-7 Assessment Tool: CHRISTIANO-7 Assessment 26415 Review of Systems Const Denies chills, Denies fever(s) and Denies headache(s) Eyes Denies change in vision ENT Denies dysphagia and Denies headache(s) Card Denies chest pain at rest, Denies chest pain with activity, Denies edema, Denies irregular heart rhythm, Denies lightheadedness, Denies dyspnea and Denies dyspnea on exertion Resp Reports no additional complaints, Denies dyspnea and Denies dyspnea on exertion GI Denies abdominal pain, Denies melena, Denies bloating, Denies hematochezia, Denies dysphagia, Denies excessive flatus and Denies heartburn Reports no additional complaints Musc Reports no additional complaints Skin/Breast Denies breast swelling, Denies breast pain, Denies breast mass, Denies dry skin and Denies rash Neuro Denies headache(s) Psych Reports no additional complaints Endo Reports no additional complaints Leandro/Lymph Reports no additional complaints Aller/Immun Reports no additional complaints Physical exam (Primary Care) Vital Signs: Last Vital Signs Temp 98 F 11/30/24 08:53 Pulse 61 11/30/24 08:53 Resp 15 11/30/24 08:53 BP 110/70 11/30/24 08:53 Pulse Ox 98 11/30/24 08:53 Oxygen Delivery Method Room Air 11/30/24 08:53 BMI result Body Mass Index 20.5 Tobacco/Smoking Status: Tobacco use Status Tobacco use date assessed 11/30/24 11/30/24 08:55 Patient Tobacco Use Status Never used Tobacco 11/30/24 08:55 e-Cigarette/Vaping Use Never Used 11/30/24 08:55 PHQ-9: PHQ-9 Score PHQ-9: Total score 0 11/30/24 09:39 Depression Screening Interpretation: Negative Thrive Assessment: Date of Thrive Assessment Date Thrive assessed 11/24/24 11/30/24 08:55 Currently or been in a relationship where the following occur: No concerns reported Advance Care Planning discussion: Completed/Scanned Date of discussion: 11/30/24 Who was present: Patient Forms completed: Health Care Proxy Time spent: 16-45 minutes Actual minutes spent: 2 Const General: no acute distress and alert Nutritional Appearance: average body habitus Orientation/consciousness: patient oriented x3 HENMT Head: Yes normocephalic and Yes atraumatic Ears: external ears normal, TM's normal bilaterally and EAC's normal General nose exam: Normal external nose present and No nasal discharge present Face and sinus: Yes face symmetric Mouth: Normal oral and palatal mucosa present, oropharynx normal and moist mucous membranes Eyes General: appearance normal, both eyes and all related structures Eyelids: Yes eyelids normal Conjunctivae: conjunctivae normal Sclerae: sclerae normal Pupils: Equal, round and reactive pupils present EOM: EOMs intact bilaterally Neck Neck: Yes full ROM, Yes no lymphadenopathy and Yes supple Thyroid: Thyroid normal Chest Chest palpation & inspection: normal inspection of the chest Breast/axilla inspection: normal inspection of the breasts Breast/axilla palpation: normal palpation of the breasts Resp Effort & Inspection: normal respiratory effort and able to speak in complete sentences Auscultation: clear to auscultation bilaterally Cardio Rate: regular rate Rhythm: regular rhythm Heart sounds: S1 normal heart sound present and S2 normal heart sound present GI Palpation (GI): Soft to palpation, nontender, no guarding and no masses Auscultation: normal bowel sounds General: Yes no CVA tenderness Back/Spine/Pelvis Back: no CVA tenderness and No back tenderness Skin General skin exam: no rashes or lesions noted Neuro General: patient oriented x3, gait normal, moves all extremities, Normal light touch and pain sensation, no focal motor deficits and CN's II-XI intact bilaterally Cranial nerves: Yes Equal, round and reactive pupils present Cognition (Neuro): normal cognition Gait exam (Neuro): Normal gait present Motor exam (neuro): 5/5 motor strength present throughout Extrem General: Yes normal to inspection, Yes full ROM, Yes no joint enlargement, Yes no pedal edema and Yes normal gait Psych Appearance: grossly normal and well kempt Mental Status: mental status grossly normal Speech and movement: Normal speech and movement present Affect: normal affect Attitude: cooperative Thought process: Normal thought process present Thought content: Normal thought content present Results Reviewed Results Reviewed: Name: Amarilis Watkins Age/Sex: 63/F : 1960 Unit#: [id number] Attend Dr: Phong Sanchez MD Re10/06/24 Status: REG RCR Location: HO.ONC Disch: SPEC : [id number] VINNY: 10/06/24 STATUS: COMP REQ : [id number] RECD: 10/06/[address]: Phong Sanchez MD COMP: 10/06/24 ENTERED: 10/06/[address]: Opal Velazquez MD ORDERED: CBC Auto Diff Test Result Flag Reference WBC 4.9 4.8-10.8 X10*3/uL RBC 4.49 4.20-5.50 X10*6/uL HGB 12.8 12.0-16.0 g/dl HCT 38.2 37.0-47.0 % MCV 85.1 80.0-98.0 fL MCH 28.5 27.0-33.0 pg MCHC 33.5 31.0-35.0 g/dl RDW 15.8 11.0-16.0 % PLT 262 160-400 X10*3/uL MPV 9.1 L 9.4-12.3 fL Neut Pct Auto 54.8 45-73 % ImGran Pct Auto 0.6 H 0.0-0.4 % Lymp Pct Auto 29.1 20-40 % Adair Pct Auto 12.9 H 2-11 % Eos Pct Auto 1.8 0-4 % Baso Pct Auto 0.8 0-2 % NRBC Pct Auto 0.0 0.0-0.2 /100WBC ANC Neut Abs # 2.7 2.0-8.3 x10*3/uL ImGran Abs Auto 0.03 0.00-0.03 X10*3/uL Lymph Abs Auto 1.4 1.2-4.9 X10*3/uL Adair Abs Auto 0.6 0.1-1.2 X10*3/uL Eos Abs Auto 0.1 0.0-0.4 X10*3/uL Baso Abs Auto 0.0 0.0-0.2 X10*3/uL NRBC Abs Auto 0.000 0.0-0.012 X10*3/uL Name: Amarilis Watkins Age/Sex: 63/F : 1960 Unit#: [id number] Attend Dr: Phong Sanchez MD Re10/06/24 Status: REG RCR Location: .ONC Disch: SPEC : [id number] VINNY: 10/06/24 STATUS: COMP REQ : [id number] RECD: 10/06/[address]: Phong Sanchez MD COMP: 10/06/24 ENTERED: 10/06/[address]: Opal Velazquez MD ORDERED: CMP, Ferritin/R Test Result Flag Reference Sodium 131 L 135-145 mmol/L Potassium 4.0 3.3-5.1 mmol/L CL 103 96-108 mmol/L CO2 23 22-29 mmol/L Gap 9 L 12-20 BUN 14 9-16 mg/dL Creat 0.66 0.5-1.4 mg/dL Estimated CrCl 83.6 Provided height and weight: 170.18 cm, 60 kg. eGFR (calculated from the MDRD study equation) and eCrCl (calculated from the Cockcroft-Gault equation) are based on different parameters and may not yield comparable results. If eCrCl result is absurd, please check patient's height/weight. eGFR > 60 Chronic Kidney Disease: Estimated GFR < 60 mL/min/1.73m2 Severe Kidney Disease: Estimated GFR < 15 mL/min/1.73m2 Glucose, Random 98 60-115 mg/dL CA 9.1 8.4-10.2 mg/dL Ferritin 1721 H 10-250 ng/mL Total Bili 0.4 0.0-1.0 mg/dL AST (GOT) 25 5-31 U/L ALT (GPT) 19 0-31 U/L Protein, Total 6.7 6.5-8.0 g/dL Alb 4.4 3.5-5.0 g/dL Alk Phos 82 39-117 U/L Coding Level of Care Code Est Pt Prev Care 40-64y(99851) Diagnoses Annual visit for general adult medical examination with abnormal findings Z00.01 Other iron deficiency anemia D50.8 Iron deficiency anemia type: other iron deficiency Immunization refused Z28.21 H/O total colectomy Z90.49 Encounter for counseling regarding advance directives Z71.89 Bilateral bunions M21.611; M21.612 Additional Codes CHRISTIANO-7 Assessment Billing - CHRISTIANO-7 Assessment Tool: CHRISTIANO-7 Assessment 91960 ([id number]) PHQ-9 - 93850 - PHQ-9 Billing: Yes ([id number]) Vital Signs *Quality* - Advance Care Planning discussion: Completed/Scanned ([id number]) Vital Signs *Quality* - Time spent: 16-45 minutes ([id number]) Assessment & Plan Assessment & Plan (1) Annual visit for general adult medical examination with abnormal findings: Code(s): Z00.01 - Encounter for general adult medical examination with abnormal findings Plan: Will check appropriate labs. Continue regular dental visit every 6 months and regular eye exams, at least every 2 years. Takes vitamin B12 vitamin-D 3 supplements, and exercises regularly with weights and walks daily. Instructed to do self-breast exam, and continue to get yearly mammogram, currently up-to-date due again in 03/2025. Declines referral to get bone density scan, does not want to start any medications for treatment of osteoporosis . Declines all vaccinations, up-to-date with her cervical cancer screening done in 03/2023 will repeat at age 66 (2) Iron deficiency anemia: Code(s): D50.9 - Iron deficiency anemia, unspecified Category: Medical Qualifiers: Iron deficiency anemia type: other iron deficiency Qualified Code(s): D50.8 - Other iron deficiency anemias Plan: Just received iron infusion in September, will recheck CBC and iron profile. Continue taking ferrous sulfate 325 mg 1 daily take it together with vitamin-C or orange juice for better absorption (3) Immunization refused: Code(s): Z28.21 - Immunization not carried out because of patient refusal Category: Medical Plan: Patient does not want to get any vaccines (4) H/O total colectomy: Code(s): Z90.49 - Acquired absence of other specified parts of digestive tract Category: Surgical Plan: Continue taking vitamin-B complex iron supplements and magnesium supplements as well as multivitamins (5) Encounter for counseling regarding advance directives: Code(s): Z71.89 - Other specified counseling Plan: Initiated the conversation about Advanced Directives. Advanced Directives help patients prepare for current and future decisions about their medical treatment and place of care. Discussed with patient that it is a process where a patients current condition and prognosis are reviewed, their wishes for information regarding their illness are elicited, and likely medical dilemmas are presented and options discussed. Healthcare proxy form completed today. The form can be amended as needed, reviewed yearly and make changes as needed (6) Bilateral bunions: Code(s): M21.611 - Bunion of right foot; M21.612 - Bunion of left foot Category: Medical Plan: Try massaging diclofenac gel to affected area every 6 hours as needed for pain or apply Salonpas patch to affected area twice a day as needed but not both together. Already schedule an appointment for Podiatry consult for next month Orders: Orders Vitamin D 25-OH Total 11/30/24 D50.8 - Other iron deficiency anemias, Z00.01 - Encounter for general adult medical examination with abnormal findings, Z28.21 - Immunization not carried out because of patient refusal, Z71.89 - Other specified counseling, Z90.49 - Acquired absence of other specified parts of digestive tract Lipid Panel 11/30/24 D50.8 - Other iron deficiency anemias, Z00.01 - Encounter for general adult medical examination with abnormal findings, Z28.21 - Immunization not carried out because of patient refusal, Z71.89 - Other specified counseling, Z90.49 - Acquired absence of other specified parts of digestive tract Hemoglobin and Hematocrit 11/30/24 D50.8 - Other iron deficiency anemias, Z00.01 - Encounter for general adult medical examination with abnormal findings, Z28.21 - Immunization not carried out because of patient refusal, Z71.89 - Other specified counseling, Z90.49 - Acquired absence of other specified parts of digestive tract IRON PROFILE 11/30/24 D50.8 - Other iron deficiency anemias, Z00.01 - Encounter for general adult medical examination with abnormal findings, Z28.21 - Immunization not carried out because of patient refusal, Z71.89 - Other specified counseling, Z90.49 - Acquired absence of other specified parts of digestive tract Vitamin B12 and Folate 11/30/24 D50.8 - Other iron deficiency anemias, Z00.01 - Encounter for general adult medical examination with abnormal findings, Z28.21 - Immunization not carried out because of patient refusal, Z71.89 - Other specified counseling, Z90.49 - Acquired absence of other specified parts of digestive tract
[2024-11-30 08:53] VITALS: BP 110/70; PULSE 61; RESP 15; TEMP 36.6; O2SAT 98; BMI 20.5
--- OUTSIDE RECORDS SUMMARY | 2024-11-30 09:15 | XMS_ITS | Patient Health Record ---
Author Organization [facility] Address [address] [address] Care Team Providers Care Mobile Ui/Ux Designer Name Role Phone Opal Velazquez Primary Care Provider Unavailab le JONA CHISHOLM Unavailable [phone] Allergies No Known Allergies Reason For Referral Reason Bilateral bunions Diagnosis 1 Bunion of right foot (M21.611) Diagnosis 2 Bunion of left foot (M21.612) Referring Provider First Name Opal Referring Provider Last Name Caroline Referred Organization [facility] Referred Provider JONA CHISHOLM Referred Address [address],[address] Referred Provider Specialty Podiatry Referral Priority Routine Encounters Encounter Location Date Provider Diagnosis [facility] [address] [address] 11/13/2024 JONA CHISHOLM Plan Of Treatment Next Appt Details Provider Name:JONA PHAN, 12/21/2024 08:00:00 AM, [address] [address], [place], [address], Insurance Providers Payer Name Payer Address Payer Phone Subscriber Number Group Number Insured Name Patient Relationship to Insured Coverage Start Date Coverage End Date [facility] Plan DIRECT ( REF REQ) [id number] [facility] [address] [place] [address] [id number] Amarilis Watkins Self - patient is the insured Medical (General) History Medical History History ICD Code Cervical cancer screening Immunization refused Facial basal cell cancer osteoarthritis of hip iron deficiency anemia ulcerative colitis hordeolum externum (stye) Surgical History Surgery Date(Month/Year) total colectomy abdominal surgery total replacement of both hip joints status post Mohs surgery for basal cell carcinoma
--- OUTSIDE RECORDS SUMMARY | 2024-11-30 09:15 | XMS_ITS | Encounter Summary ---
Author Organization [facility] Address [address] [place] [address] Care Team Providers Care Credit Historian Name Role Phone Pcp, No Primary Care Provider Opal Baltazar MD Primary Care Provider [phone] Encounter Details Date Type Department Care Team (Late st Contact Info) Description 05/02/2016 Abstract [facility] Colorectal Surgery [place] [address] [facility] [address] [place] [id number] Renea Trevizo, RN [address] [place] [address] Social History Tobacco Use Types Packs/Day Years Used Date Smoking Tobacco: Never Assessed Sex and Gender Information Value Date Recorded Sex Assigned at Not on file Gender Identity Not on file Sexual Orientation Not on file documented as of this encounter Plan of Treatment Not on file documented as of this encounter Visit Diagnoses Not on filedocumented in this encounter Care Teams Credit Historian Relationship Specialty Start Date End Date Pcp, No PCP - General General Medicine 09/22/18 10/13/18 Opal Velazquez MD [address] [place] [address] PCP - General Internal Medicine 10/14/18 documented as of this encounter
--- OUTSIDE RECORDS SUMMARY | 2024-11-30 09:15 | XMS_ITS ---
Author Name [facility] Organization Unknown History of Medication Use Medication Directions Dispensed Refills Start Date End Date Stat fluconazole (diFLUcan) 100 MG tablet Take 1 tablet (100 mg total) by mouth daily. 10/13/2019 active omega-3 fatty acids (FISH OIL) 1000 MG Cap capsule Take 1,000 mg by mouth. active Vitamin D3 (CHOLECALICEROL) 2000 units tablet Take 2,000 Units by mouth daily. active vitamin E 1000 UNIT capsule Take 1,000 Units by mouth daily. active Problems Problem Status Onset Date Problem Type Date of Resoluti on Source Generalized abdominal pain active 2018-10-14 ProblemAct [facility] Anemia active 2018-10-14 ProblemAct [facility]
--- OUTSIDE RECORDS SUMMARY | 2024-11-30 09:15 | XMS_ITS ---
Author Organization [facility] Address [address] [address] Care Team Providers Care Registered Nurse Maternity Name Role Phone SureshkarunaOpal Primary Care Provider Unavailab JONA Hayes Unavailable [phone] REASON FOR VISIT Pcp records Encounters Encounter Location Date Provider Diagnosis [facility] [address] [address] 11/13/2024 JONA CHISHOLM Plan Of Treatment Next Appt Details Provider Name:JONA CHISHOLM, 12/21/2024 08:00:00 AM, [address] [address], [place], [address], Progress Notes * Damien CUNNINGHAMZeyadOB: 2 (64 yo F)Acc No.[id number]:11/13/2024 Patient:?Amarilis CUNNINGHAM :1960???Age:64 Y???Sex:Female Phone: Address:[address] [place] [address], [address] * true * Date:? Generated for Cyrusi usha/Hawa/eTransmitting on:?11/30/2024 09:14 AM EST
--- OUTSIDE RECORDS SUMMARY | 2024-11-30 09:15 | XMS_ITS | Clinical Summary ---
Author Organization Formerly [facility] Address [address] [place] [address] Care Team Providers Care Character Artist Name Role Phone Opal Velazquez MD Primary Care Provider [phone] Allergies No known active allergies Medications Medication Sig Dispensed Refills Start Date End Date Status vitamin E 1000 UNIT capsule Take 1,000 Units by mouth daily. Active ferrous sulfate 325 (65 FE) MG tablet Take 325 mg by mouth daily. Take 2 hours before or 4 hours after acid reducers. Active Multiple Vitamin (MULTIVITAMIN) capsule Take 1 capsule by mouth daily. Active Vitamin D3 (CHOLECALICEROL) 2000 units tablet Take 2,000 Units by mouth daily. Active omega-3 fatty acids (FISH OIL) 1000 MG Cap capsule Take 1,000 mg by mouth. Active ciprofloxacin (CIPRO) 500 MG tabletIndications :Pouchitis (HCC) Take 1 tablet (500 mg total) by mouth 2 (two) times a day. 14 tablet 11/04/2018 Active fluconazole (diFLUcan) 100 MG tabletIndications :Yeast infection Take 1 tablet (100 mg total) by mouth daily. 3 tablet 10/13/2019 Active pramipexole (miraPEx) 0.25 MG tablet Take 1 tablet (0.25 mg total) by mouth every evening. 09/12/2022 2022 Discontinued (Patient Discharge) Active Problems Problem Noted Date Diagnosed Date Anemia 10/14/2018 Generalized abdominal pain 10/14/2018 Family History Medical History Relation Name Comments Multiple sclerosis Brother 1 Lymphoma Brother 2 Diverticulitis Father Multiple sclerosis Sister Colon cancer Neg Hx Relation Name Status Comments Brother 1 Brother 2 Father Sister Social History Tobacco Use Types Packs/Day Years Used Date Smoking Tobacco: Never Smokeless Tobacco: Never Tobacco Cessation:Counseling Given: Not Answered Alcohol Use Standard Drinks/Week Comments No 0 (1 standard drink = 0.6 oz pur e alcohol) AUDIT-C Answer Date Recorded Frequency of Alcohol Consumption Never 10/14/2018 Average Number of Drinks Not on file 019 Frequency of Binge Drinking Not on file 05/2019 Sex and Gender Information Value Date Recorded Sex Assigned at Not on file Gender Identity Not on file Sexual Orientation Not on file Last Filed Vital Signs Vital Sign Reading Time Taken Comments Blood Pressure 125/78 10/24/2018 12:20 PM EST Pulse 52 10/24/2018 12:20 PM EST Temperature 36.2 ??C (97.1 ??F) 10/24/2018 10:[address] Respiratory Rate 16 10/24/2018 12:10 PM EST Oxygen Saturation 97% 10/24/2018 12:20 PM EST Inhaled Oxygen Concentration - - Weight 56.7 kg (125 lb) 10/19/2022 11:39 AM EST Height 170.2 cm (5' 7 ) 10/19/2022 11:39 AM EST Body Mass Index 19.58 10/19/2022 11:39 AM EST Plan of Treatment Health Maintenance Due Date Last Done Comments Hepatitis C Virus Screening 1961 HIV Screening 1974 DTaP/Tdap/Td Vaccines (1 - Tdap) 1980 Pap Smear (Ages 21-65) 1982 Mammogram 2001 Pneumococcal Vaccines 50+ (1 of 1 - PCV) 2011 Zoster (Shingles) Vaccine (1 of 2) 2011 Colonoscopy 10/24/2022 10/24/2018 (Previously Completed) Influenza Vaccine 05/07/2024 COVID-19 Vaccine ( - 2023-2 5 season) 2024 RSV Vaccine 60 years and older and Patients (1 - 1-dose 75+ series) 2036 Hepatitis B Vaccines Aged Out No long er eligible based on patient's age to complete this topic Pneumococcal Vaccine: Pediatric (0-5 Years) and At-Risk Patients (6 to 49 Years) Aged Out No longer eligible b ased on patient's age to complete this topic Care Teams Character Artist Relationship Specialty Start Date End Date Opal Velazquez MD [address] [place], [place] [id number] PCP - General Internal Medicine 10/14/18
== END 2024-11-30 09:45 | disposition home or self-care (01) ==
PROVIDERS: PCP Internal Medicine; Visit Provider Internal Medicine
DX: Z00.01 Encounter for general adult medical examination with abnormal findings (principal); D50.8 Other iron deficiency anemias; Z28.21 Immunization not carried out because of patient refusal; Z90.49 Acquired absence of other specified parts of digestive tract; Z71.89 Other specified counseling; M21.611 Bunion of right foot; M21.612 Bunion of left foot

== ENCOUNTER 2025-04-15 07:55 | Outpatient (REF) | payer OTHER, SELFPAY ==
[2025-04-15 09:06] LABS: MANUAL DIFF FLAG NO
[2025-04-15 09:42] LABS: Hematocrit 37.1 % (37.0-47.0); Hemoglobin 12.7 g/dl (12.0-16.0); Imm Gran Abs Auto 0.01 X10*3/uL (0.00-0.03); Imm Gran Pct Auto 0.2 % (0.0-0.4); Lymphocytes Absolute Auto 1.4 X10*3/uL (1.2-4.9); Mean Corpuscular HGB Conc 34.2 g/dl (31.0-35.0); Mean Corpuscular Hemoglobin 29.1 pg (27.0-33.0); Mean Corpuscular Volume 85.1 fL (80.0-98.0); NRBC Abs Auto 0.000 X10*3/uL (0.0-0.012); NRBC Pct Auto 0.0 /100WBC (0.0-0.2); Platelet Count 294 X10*3/uL (160-400); Red Blood Count 4.36 X10*6/uL (4.20-5.50); White Blood Count 4.0 X10*3/uL (4.8-10.8)
[2025-04-15 10:08] LABS: Iron 51 mcg/dL (30-160); Percent Iron Saturation 19 % (15-50); Total Iron Binding Capacity 264 mcg/dL (228-428); Unsaturated Iron Binding 213 ug/dL
[2025-04-15 10:23] LABS: Ferritin 368 ng/mL (10-250)
[2025-04-15 10:36] LABS: Folate 14.6 ng/mL (> or = 4.0); Vitamin B12 743 pg/mL (200-900)
[2025-04-16 11:29] LABS: Immunoglobulin A 53 mg/dL (70-320)
[2025-04-21 19:23] LABS: Calprotectin, Fecal 303 mcg/g
== END 2025-04-15 07:56 | disposition home or self-care (01) ==
LOC: HO.LAB 07:55
PROVIDERS: PCP Internal Medicine; Visit Provider Internal Medicine Gastroenterology
DX: K51.918 Ulcerative colitis, unspecified with other complication (principal); D50.8 Other iron deficiency anemias
CPT/HCPCS: 36415; 82607; 82656; 82728; 82746; 82784; 83540; 83993; 85025; 86140; 86364

== ENCOUNTER 2025-07-22 08:01 | Outpatient (REF) | payer OTHER, SELFPAY ==
[2025-07-22 15:56] LABS: Hematocrit 36.4 % (37.0-47.0); Hemoglobin 12.1 g/dl (12.0-16.0); Mean Corpuscular HGB Conc 33.2 g/dl (31.0-35.0); Mean Corpuscular Hemoglobin 28.6 pg (27.0-33.0); Mean Corpuscular Volume 86.1 fL (80.0-98.0); NRBC Abs Auto 0.000 X10*3/uL (0.0-0.012); NRBC Pct Auto 0.0 /100WBC (0.0-0.2); Platelet Count 300 X10*3/uL (160-400); Red Blood Count 4.23 X10*6/uL (4.20-5.50); White Blood Count 5.6 X10*3/uL (4.8-10.8)
[2025-07-22 16:53] LABS: Ferritin 280 ng/mL (10-250)
--- OUTSIDE RECORDS SUMMARY | 2025-07-22 18:57 | XMS_ITS | Encounter Summary ---
Author Organization [facility] Address [address] [place] [address] Care Team Providers Care Mica Layer Name Role Phone Pcp, Lisa Primary Care Provider Opal Baltazar MD Primary Care Provider [phone] Encounter Details Date Type Department Care Team (Late st Contact Info) Description 05/02/2016 Abstract [facility] Colorectal Surgery [place] [address] [facility] [address] [place] [address] Renea Trevizo, RN [address] [place] [address] Social History Tobacco Use Types Packs/Day Years [...] on filedocumented in this encounter Care Teams Mica Layer Relationship Specialty Start Date End Date Pcp, Lisa PCP - General General Medicine 09/22/18 10/13/18 Opal Velazquez MD [address] [place] [address] PCP - General Internal Medicine 10/14/18 documented as of this encounter
--- OUTSIDE RECORDS SUMMARY | 2025-07-22 18:57 | XMS_ITS | Clinical Summary ---
Author Organization [facility] Address [address] [place] [address] Care Team Providers Care Public Services Librarian Name Role Phone Opal Velazquez MD Primary Care Provider [phone] Allergies No known active allergies Medications vitamin [...] MANAGED MEDICARE [employer] MANAGED MEDICARE Care Teams Public Services Librarian Relationship Specialty Start Date End Date Opal Velazquez MD [address] [place] [address] [phone] PCP - General Internal Medicine 10/14/18
[2025-07-23 06:08] LABS: Immunoglobulin A 56 mg/dL (70-320); Immunoglobulin G 641 mg/dL (600-1540); Immunoglobulin M 47 mg/dL (50-300)
[2025-07-26 16:02] LABS: Transglutaminase Ab IgG <1.0 U/mL
== END 2025-07-22 08:02 | disposition home or self-care (01) ==
LOC: HO.LAB 08:01
PROVIDERS: PCP Internal Medicine; Visit Provider Internal Medicine Gastroenterology
DX: K51.918 Ulcerative colitis, unspecified with other complication (principal); D50.8 Other iron deficiency anemias; D80.2 Selective deficiency of immunoglobulin A [IgA]; Z01.84 Encounter for antibody response examination
CPT/HCPCS: 36415; 82728; 82784; 85027; 86364

== ENCOUNTER 2025-07-22 08:01 | Outpatient (AMB) | payer OTHER, SELFPAY ==
--- OUTSIDE RECORDS SUMMARY | 2024-12-21 04:00 | XMS_ITS ---
Author Organization [facility] Address [address] [address] Care Team Providers Care Guard Range Name Role Phone Opal Velazquez Primary Care Provider Unavailab JONA Hayes Unavailable [phone] Allergies No Known Allergies REASON FOR VISIT [...] Active Encounters Encounter Location Date Provider Diagnosis [facility] [address] [address] 12/21/2024 JONA CHISHOLM Plan Of Treatment No Information Progress Notes * Selvin WATKINSOB: 2 (64 yo F)Acc No.[id number]:12/21/2024 Consult note Patient: Amarilis ALVES Provider: Nyasia Bullock DPDuran :1960 A ge:64 Y S ex:Female Date:12/21/2024 Phone: Address:[address] [place] [phone] Pcp:Opal Velazquez Subjective: * Chief Complaints: * [...] Electronic signature of RIGOBERTO CHISHOLM D.P.M. on 07/22/2025 at 08:05 AM EDT Sign off status: Pending * Provider: Nyasia Bullock DPDuran Date: 0 12/21/2024 Generated for Angle kerr/Hawa/Belkis on: 1 08:05 AM EDT
[2025-07-22 08:05] VITALS: BP 112/49; PULSE 62; O2SAT 97; BMI 19.6
--- NOTE | 2025-07-22 08:05 | A.OFFVIS_ITS ---
Vital Signs 07/22/25 08:05 Height 5 ft 7 in Weight 125 lb BMI 19.6 BP 112/49 L Blood Pressure Location Lt brachial Position Sitting Pulse 62 Pulse Oximetry (%) 97 Oxygen Delivery Method Room Air Intake Visit Reasons: 3 month follow up Intake Note: Patient 3 month follow up for Iron deficiency anemia and lab/fecal results. Patient cc: fatigue is come and go, denies any other GI issues. Field Hockey And Lacrosse Coach Required: No Accompanied by: Self / Same As Patient Allergies No Known Allergies (No Known Allergies*) Allergy (Verified 10/13/25 13:01) Medication List - Last Reconciled 07/22/25 by Yury Dow MD B-complex with vitamin C 1 tab PO DAILY ferrous sulfate 325 mg PO DAILY magnesium 250 mg PO DAILY multivitamin 1 tab PO DAILY omega-3 fatty acids 500 mg PO DAILY pramipexole 0.25 mg PO BEDTIME HPI HPI 3 month follow up: Details: GI clinic visit for this 64-year-old lady with history ulcerative colitis s/p total colectomy, osteoarthritis of hips s/p bilateral total hip arthroplasty, basal cell CA on face s/p Mohs surgery referred by Dr. Velazquez for FU of ulcerative colitis. Patient is status post total colectomy with ileoanal pouch in 2006. She is being followed by Dr. Sanchez for iron-deficiency anemia related to heavy period and malabsorption: Status post iron infusion, December 26, 2012. She had Ferlecit between January 09 and January 30 for 4 doses 2018. She had Injectafer x2, in August, TODAY'S VISIT: Patient complains of fatigue which comes and goes Pt was diagnosed with UC at age [age] - diagnosed with ulcrative proctitis. Had extension of UC - treated with asacol and enemas and prednisone. Followed by Dr Way for several years. Did not want to be on immunosuppression and decided to have surgery. I go to the bathroom a lot - has 10 BMs a day. BMs are loose to watery - does not drink coffee Careful with what she eats, does yoga and meditates. Has had iron infusions for recurrent ALPESH. Had pouchoscopy in [address] Patricia Chapin 12/2022 had pouchoscopy - Had surgery in 01/2023 - band of adhesions 08/29 SBO - twist in the small bowel - had open surgery and removal of adhesions and no bowel resection. Has used mesalamine enemas prior to her colectomy PAST VISITS: Patient denies symptoms of heartburn, dysphagia, nausea, vomiting, change in appetite or weight. Intermittent bloating and avoids onions and garlic and avoids spicy foods. Denies recent change in bowel habits, constipation, diarrhea, black stools or rectal bleeding. Patient denies major cardiac or pulmonary problems, loud snoring or sleep apnea Wears a mouth guard and a mouth tape. Denies problems with anesthesia in the past. Hx of vaso-vegal reaction Denies being on chronic anticoagulation. FAMILY HISTORY: Patient denies known family history of IBD, colon cancer or other GI malignancies. Hx of colon polyps in both parents. PAST GI HISTORY BY REVIEW OF MEDICAL RECORDS: She again had bowel obstruction last August 12. She required surgery. She was in house for 5 days. In December,, she had bowel obstruction. This was when she was visiting her daughter in [place]. She was on NG suction for 36 hours. Fortunately did not need surgery. In January she had a band of scar tissue removed laparoscopically by Patricia Chapin at [facility]. She had a tough recovery. She lost weight, down to 116 lb. LABS IN [facility] : Reviewed IMAGING STUDIES: No recent GI imaging studies PAST GI HISTORY BY REVIEW OF MEDICAL RECORDS: 64-year-old lady with history ulcerative colitiss/p total colectomy , osteoarthritis of hips s/p bilateral total hip arthroplasty, basal cell CA on face s/p Mohs surgery, here today for physical exam. She has been feeling well, up-to-date with her screening mammogram done 03/1924 with benign findings. She is also up-to-date with her cervical cancer screening and pelvic exam, done 11/16/2022 showing atrophic vaginal mucosa, negative for inflammation or morris gnancy negative for HPV.She had a dip in her hemoglobin /hematocrit last September, felt more tired than usual, received iron infusions ordered by Dr. Sanchez which afforded improvement in her symptoms [facility] Medical History Bilateral bunions Cervical cancer screening Immunization refused Facial basal cell cancer Osteoarthritis of hip Iron deficiency anemia Ulcerative colitis Hordeolum externum (stye) Surgical History Hx of colonoscopy H/O total colectomy H/O abdominal surgery History of total replacement of both hip joints Status post Mohs surgery for basal cell carcinoma Hx of colectomy History of left hip replacement Family History Sister Multiple sclerosis Alcoholism Substance use disorder Mental health disorder Father Hypertension Substance use disorder Brother Lymphoma Substance use disorder Mental health disorder Paternal Aunt Substance use disorder Social History Household Members: Spouse Housing: House Alcohol intake: never Patient Tobacco Use Status: Never used Tobacco e-Cigarette/Vaping Use: Never Used service: No Current occupational status: employed Cognitive needs: No Hearing needs: No Vision needs: Yes Review of Systems Const All systems reviewed & are unremarkable except as noted in HPI and below Physical Exam Vital Signs: Last Vital Signs Pulse 62 07/22/25 08:05 BP 112/49 L 07/22/25 08:05 Pulse Ox 97 07/22/25 08:05 Oxygen Delivery Method Room Air 07/22/25 08:05 BMI result Body Mass Index 19.6 Const General: healthy appearing and no acute distress Nutritional Appearance: underweight Orientation/consciousness: patient oriented x3 Limitations: no limitations HEENT Head: Yes normal to inspection Ears: hearing grossly normal bilaterally Eyes Sclerae: sclerae normal Pupils: Equal, round and reactive pupils present Neck Neck: Yes normal visual inspection Chest Chest palpation & inspection: normal inspection of the chest Resp Effort & Inspection: normal respiratory effort Auscultation: clear to auscultation bilaterally Cardio Palpation: normal PMI Rate: regular rate Rhythm: regular rhythm Heart sounds: S1 normal heart sound present, S2 normal heart sound present and no murmurs GI Inspection: Yes scar (midline scar of past abd surgeries) Palpation (GI): Soft to palpation, nontender and No hepatosplenomegaly present Auscultation: normal bowel sounds Rectal Exam - Female: deferred Skin General skin exam: no rashes or lesions noted Neuro General: patient oriented x3, gait normal and moves all extremities Cranial nerves: Yes Equal, round and reactive pupils present Psych Appearance: grossly normal Mental Status: mental status grossly normal Assessment & Plan Assessment & Plan (1) Ulcerative colitis: Comment: Status post total colectomy with J-pouch Code(s): K51.90 - Ulcerative colitis, unspecified, without complications Category: Medical Qualifiers: Digestive disease complication type: other complication Ulcerative colitis location: unspecified ulcerative colitis location Qualified Code(s): K51.918 - Ulcerative colitis, unspecified with other complication (2) Iron deficiency anemia: Code(s): D50.9 - Iron deficiency anemia, unspecified Category: Medical Qualifiers: Iron deficiency anemia type: other iron deficiency Qualified Code(s): D50.8 - Other iron deficiency anemias (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 Patient is status post total colectomy with ileoanal pouch in 2006. She is being followed by Dr. Sanchez for iron-deficiency anemia related to heavy period and malabsorption: Patient denies major cardiac or pulmonary problems, loud snoring or sleep apnea Wears a mouth guard and a mouth tape. Denies problems with anesthesia in the past. Hx of vaso-vegal reaction Denies being on chronic anticoagulation. Pt advised to schedule an upper endoscopy and flexible sigmoidoscopy. Both procedures and potential complications including bleeding, perforation, reaction to anesthetic and aspiration were reviewed with the patient. Orders: Orders Immunoglobulin M 07/22/25 D80.2 - Selective deficiency of immunoglobulin A [IgA] Immunoglobulin G 07/22/25 D80.2 - Selective deficiency of immunoglobulin A [IgA] Immunoglobulin A 07/22/25 D80.2 - Selective deficiency of immunoglobulin A [IgA] Transglutaminase Ab IgG 07/22/25 D50.8 - Other iron deficiency anemias Ferritin 07/22/25 D50.8 - Other iron deficiency anemias Complete Blood Count no Diff 07/22/25 D50.8 - Other iron deficiency anemias Referrals GI Procedure Notification K51.918 - Ulcerative colitis, unspecified with other complication Coding Level of Care Code Est Pt Level 4 (69887) Diagnoses Ulcerative colitis with other complication, unspecified location K51.918 Digestive disease complication type: other complication Ulcerative colitis location: unspecified ulcerative colitis location Other iron deficiency anemia D50.8 Iron deficiency anemia type: other iron deficiency IgA deficiency D80.2 Time Spent (min) 24
--- OUTSIDE RECORDS SUMMARY | 2025-07-22 08:05 | XMS_ITS | Clinical Summary ---
Author Organization [facility] Address [address] [place] [address] Care Team Providers Care Incident Response Specialist Name Role Phone Opal Velazquez MD Primary Care Provider [phone] Allergies No known active allergies Medications vitamin E 1000 UNIT capsule Take 1,000 Units by mouth daily. Active ferrous sulfate 325 (65 FE) MG tablet Take 325 mg by mouth daily. Take 2 hours before or 4 hours after acid reducers. Active Multiple Vitamin (MULTIVITAMIN) capsule Take 1 capsule by mouth daily. Active Vitamin D3 (CHOLECALICEROL ) 2000 units tablet Take 2,000 Units by mouth daily. Active omega-3 fatty acids (FISH OIL) 1000 MG Cap capsule Take 1,000 mg by mouth. Active ciprofloxacin (CIPRO) 500 MG tabletIndicatio ns:Pouchitis (HCC) Take 1 tablet (500 mg total) by mouth 2 (two) times a day. 14 tablet 9 Active fluconazole (diFLUcan) 100 MG tabletIndicatio ns:Yeast infection Take 1 tablet (100 mg total) by mouth daily. 3 tablet 0 Active pramipexole (miraPEx) 0.25 MG tablet Take 1 tablet (0.25 mg total) by mouth every evening. 2 10/30/19 23 Discontinu ed(Patient Discharge) Active Problems Problem Noted Date Diagnosed [...] of Binge Drinking Not on file 05/2019 Comments No Sex and Gender Information Value Date Recorded Sex Assigned at Not on file Legal Sex Female 12:15 PM EDT Gender Identity Not on file Sexual Orientation Not on file Last Filed Vital Signs Vital Sign Reading Time Taken Comments Blood Pressure 125/78 10/24/2018 12:20 PM EST Pulse 52 10/24/2018 12:20 PM EST Temperature 36.2 C (97.1 F) 10/24/2018 10:48 AM EST Respiratory Rate 16 10/24/2018 12:10 PM EST [...] Colonoscopy 10/24/2022 10/24/2018 (Previously Completed) Influenza Vaccine 05/07/2025 COVID-19 Vaccine (1 - 2023-2 5 season) 2025 RSV Vaccine 50 years and older and Patients (1 - 1-dose 75+ series) 2036 Hepatitis B Vaccines Aged Out No long er eligible based on patient's age to complete this topic Insurance [employer] Care Teams Incident Response Specialist Relationship Specialty Start Date End Date Opal Velazquez MD [address] [place] [id number] PCP - General Internal Medicine 10/14/18
--- OUTSIDE RECORDS SUMMARY | 2025-07-22 08:05 | XMS_ITS | Encounter Summary ---
Author Organization [facility] Address [address] [place] [address] Care Team Providers Care Safety Clothing And Equipment Developer Name Role Phone Pcp, Lisa Primary Care Provider Opal Baltazar MD Primary Care Provider [phone] Encounter Details Date Type Department Care Team (Late st Contact Info) Description 05/02/2016 Abstract [facility] Colorectal Surgery [place] [address] [facility] [address] [place] [address] Renea Trevizo, RN [address] [place] [address] Social History Tobacco Use Types Packs/Day Years Used Date Smoking Tobacco: Never Assessed Comments Unknown Sex and Gender Information Value Date Recorded Sex Assigned at Not on file Legal Sex Female 12:15 PM EDT Gender Identity Not on file Sexual Orientation Not on file documented as of this encounter Plan of Treatment Not on file documented as of this encounter Visit Diagnoses Not on filedocumented in this encounter Care Teams Safety Clothing And Equipment Developer Relationship Specialty Start Date End Date Pcp, Lisa PCP - General General Medicine 09/22/18 10/13/18 Opal Velazquez MD [address] [place] [address] PCP - General Internal Medicine 10/14/18 documented as of this encounter
--- OUTSIDE RECORDS SUMMARY | 2025-07-22 08:05 | XMS_ITS | Patient Health Record ---
Author Organization [facility] Address [address] [address] Care Team Providers Care Molder Sweep Name Role Phone Opal Velazquez Primary Care Provider Unavailab le JONA CHISHOLM Unavailable [phone] Allergies No Known Allergies Reason For Referral Reason Bilateral bunions Diagnosis 1 Bunion of right foot (M21.611) Diagnosis 2 Bunion of left foot (M21.612) Referring Provider First Name Opal Referring Provider Last Name Caroline Referred Organization [facility] Referred Provider JONA CHISHOLM Referred Address [address] [place] [address] [address] ,[place], [place],[address], Referred Provider Specialty Podiatry Referral Priority Routine Medications Medication SIG (Take, Route, Frequency, Duration) Notes Start Date End Date Status Pramipexole Dihydrochloride 0.25 MG 1 tablet Orally Once a day Active Multivitamin - 1 tablet Orally Once a day Active Ferrous Sulfate 325 (65 Fe) MG 1 tablet Orally Three times a Week Active B-Complex-C - as directed Orally Active Encounters Encounter Location Date Provider Diagnosis [facility] [address] [address] 11/13/2024 JONA CHISHOLM Plan Of Treatment No Information Insurance Providers Payer Name Payer Address Payer Phone Subscriber Number Group Number Insured Name Patient Relationship to Insured Coverage Start Date Coverage End Date [facility] Plan DIRECT ( REF REQ) [id number] [employer] [facility] [id number] [facility] [place] [id number] [phone] [id number] Amarilis Watkins Self - patient is the insured Medical (General) History Medical History History ICD Code Facial basal cell cancer osteoarthritis of hip iron deficiency anemia ulcerative colitis hordeolum externum (stye) Surgical History Surgery Date(Month/Year) total colectomy abdominal surgery total replacement of both hip joints status post Mohs surgery for basal cell carcinoma
== END 2025-07-22 08:53 | disposition home or self-care (01) ==
LOC: HO.HGI 08:02
PROVIDERS: PCP Internal Medicine; Visit Provider Internal Medicine Gastroenterology
DX: K51.918 Ulcerative colitis, unspecified with other complication (principal); D50.8 Other iron deficiency anemias; D80.2 Selective deficiency of immunoglobulin A [IgA]
CPT/HCPCS: 99499

== ENCOUNTER 2025-08-12 08:23 | Outpatient (AMB) | payer OTHER, SELFPAY ==
--- OUTSIDE RECORDS SUMMARY | 2024-12-21 03:00 | XMS_ITS ---
Author Organization [facility] Address [address] [address] Care Team Providers Care Machine Brush Maker Name Role Phone Opal Velazquez Primary Care Provider Unavailab JONA Hayes Unavailable [phone] Allergies No Known Allergies REASON FOR VISIT B/L bunions Medications Medication SIG (Take, Route, Frequency, Duration) Notes Start Date End Date Status Pramipexole Dihydrochloride 0.25 MG 1 tablet Orally Once a day Active Multivitamin - 1 tablet Orally Once a day Active Ferrous Sulfate 325 (65 Fe) MG 1 tablet Orally Three times a Week Active B-Complex-C - as directed Orally Active Encounters Encounter Location Date Provider Diagnosis [facility] [address] [address] 12/21/2024 JONA CHISHOLM Plan Of Treatment No Information Progress Notes * Selvin WATKINSOB: 2 (64 yo F)Acc No.[id number]:12/21/2024 Consult note Patient: Amarilis ALVES Provider: Nyasia Bullock DPDuran :1960 A ge:64 Y S ex:Female Date:12/21/2024 Phone: Address:[address] [place] [phone] Pcp:Opal Velazquez Subjective: * Chief Complaints: * 1 . B/L bunions. * Medical History: F acial basal cell cancer, Osteoarthritis of hip, Iron deficiency anemia, Ulcerative colitis, Hordeolum externum (stye). * Surgical History: t otal colectomy , abdominal surgery , total replacement of both hip joints , status post Mohs surgery for basal cell carcinoma . * Family History: F ather: Hypertension. S iblings: Sister: multiple sclerosis, AlcoholismBrother:. * Social History: t obacco: Never alcohol: Never. * Medications: T aking Pramipexole Dihydrochloride 0.25 MG Tablet 1 tablet Orally Once a day , Taking Multivitamin - Tablet 1 tablet Orally Once a day , Taking Ferrous Sulfate 325 (65 Fe) MG Tablet 1 tablet Orally Three times a Week , Taking B-Complex-C - Tablet as directed Orally * Allergies: N .K.D.A. Objective: * Vitals: Therapeutic Interventions: Assessment: Plan: * Treatment: * Billing Information: * Visit Code: * Procedure Codes: * Electronic signature of RIGOBERTO CHISHOLM D.P.M. on 08/12/2025 at 08:48 AM EST Sign off status: Pending * Provider: Nyasia Bullock DPDuran Date: 0 12/21/2024 Generated for Angle kerr/Hawa/Belkis on: 1 10/12/2024 08:48 AM EST
--- NOTE | 2025-08-12 08:34 | A.OFFVIS_ITS ---
Intake Visit Reasons: 1 RLS Allergies No Known Allergies (No Known Allergies*) Allergy (Verified 08/12/25 08:35) Medication List - Last Reconciled 08/12/25 by Marge Dickson CNP B-complex with vitamin C 1 tab PO DAILY ferrous sulfate 325 mg PO DAILY magnesium 250 mg PO DAILY multivitamin 1 tab PO DAILY omega-3 fatty acids 500 mg PO DAILY pramipexole 0.125 - 0.25 mg PO BEDTIME HPI Comments Details: She was doing okay. RLS symptoms controlled with 1/2 tab of pramipexole. If she does not take the medication for a day or two, the symptoms return. Sleep was okay. She was staying active, walking about 4 miles/day and practicing yoga. Her daughter and son were both expecting children within a few months of each other. She describes a vague sensation going from her anterior thighs down to her legs when resting and trying to sleep which wakes her up.Had 2 surgeries for bowel obstruction in 01/2023 for scar tissue and in 08/2023 open surgery for volvulus. She also has some pain from the arthritis for which she takes Aleve and has had injections. She is very body conscious of all symptoms. She is on multiple health supplements. She prefers not to be on any medications. Has vasovagal syncope with severe abdominal pain. [facility] Medical History (Updated 08/12/25 @ 08:37 by Marge Dickson CNP) Bilateral bunions Cervical cancer screening Immunization refused Facial basal cell cancer Osteoarthritis of hip Iron deficiency anemia Ulcerative colitis Hordeolum externum (stye) Surgical History Hx of colonoscopy H/O total colectomy H/O abdominal surgery History of total replacement of both hip joints Status post Mohs surgery for basal cell carcinoma Hx of colectomy History of left hip replacement Family History Sister Multiple sclerosis Alcoholism Substance use disorder Mental health disorder Father Hypertension Substance use disorder Brother Lymphoma Substance use disorder Mental health disorder Paternal Aunt Substance use disorder Social History Housing: House Alcohol intake: never Patient Tobacco Use Status: Never used Tobacco e-Cigarette/Vaping Use: Never Used service: No Current occupational status: employed Cognitive needs: No Hearing needs: No Vision needs: Yes Review of Systems Const Denies chills, Denies daytime sleepiness, Denies difficulty sleeping, Denies fatigue, Denies fever(s), Denies frequent falls, Denies headache(s), Denies increased appetite, Denies poor appetite, Denies snoring, Denies weakness, Denie s weight gain and Denies weight loss Eyes Denies loss of vision ENT Denies vertigo, Denies dizziness, Denies headache(s) and Denies neck pain Card Denies chest pain at rest, Denies chest pain with activity, Denies syncope, Denies leg edema, Denies palpitations, Denies dyspnea and Denies dyspnea on exertion Resp Denies cough, Denies dyspnea, Denies dyspnea on exertion and Denies snoring GI Denies abdominal pain, Denies constipation, Denies heartburn, Denies diarrhea and Denies nausea Denies urinary frequency, Denies urinary incontinence and Denies urinary urgency Musc Denies abnormal gait, Denies back pain, Denies myalgias, Denies arthralgias, Denies neck pain, Denies numbness and Denies tingling Neuro Denies abnormal gait, Denies vertigo, Denies dizziness, Denies syncope, Denies frequent falls, Denies headache(s), Denies lack of coordination, Denies loss of vision, Denies memory loss, Denies numbness, Denies Other visual disturbances, Reports restless legs, Denies seizure-like activity, Denies tingling, Denies paresthesias, Denies tremor(s) and Denies weakness Psych Denies anxiety, Denies depression, Denies auditory hallucinations, Denies memory loss and Denies visual hallucinations Endo Denies fatigue and Denies palpitations Physical Exam Const Other: General Appearance:? normal, in no acute distress. Heart:? S1, S2 normal, no murmurs. Lungs:? clear anteriorly and posteriorly. Musculoskeletal:? normal. Extremities:? no edema. Psych:? alert, oriented, cognitive function intact, cooperative with exam. Neuro Other: Abnormal Neurological Findings:?none.? Mental Status: alert and oriented X 3. Normal attention, orientation, memory, and affect. Cranial Nerves: Pupils are equal, round, and reactive to light. External ocular muscles are intact. Visual huber are full, no ptosis. Face is symmetrical, no facial weakness or droop. Facial sensations are normal. Tongue protrudes in midline. Palate elevates symmetrically. Shoulder shrugging is normal Motor Examination: Normal muscle tone, bulk and strength. No atrophy or fasciculations. No drift of the extended upper extremities. DTR 2+. Plantars are flexor. Sensory Exam: Normal light touch, temperature, pinprick, vibration, and joint- position sensations. Rhomberg sign is absent. Coordination: No ataxia. No titubation. Gait Exam: Within normal limits. Cerebellar Signs: [id number] is okay. Extrapyramidal System: No tremor, rigidity with normal facial expressions. No bradykinesia. No bradyphrenia. Normal arm swing and posture. No propulsion or retropulsion. Speech: Normal. Assessment & Plan Assessment & Plan (1) Restless leg syndrome: Code(s): G25.81 - Restless legs syndrome Category: Medical Plan: Continue pramipexole 0.25mg 1/2 - 1 tablet daily in the evening. Medications: Changed From pramipexole 0.125 - 0.25 mg PO BEDTIME To pramipexole 0.125 - 0.25 mg (0.5 - 1 x 0.25 mg) PO BEDTIME 90 tabs 3RF 90 days Coding Level of Care Code Est Pt Level 3 (70846) Diagnoses Restless leg syndrome G25.81
--- OUTSIDE RECORDS SUMMARY | 2025-08-12 08:48 | XMS_ITS | Encounter Summary ---
Author Organization [facility] Address [address] [place] [address] Care Team Providers Care Pharmacy Billing Adjudicator Name Role Phone Pcp, Lisa Primary Care Provider Opal Baltazar MD Primary Care Provider [phone] Encounter Details Date Type Department Care Team (Late st Contact Info) Description 05/02/2016 Abstract [facility] Colorectal Surgery [place] [address] [facility] [address] [place] [address] Renea Trevizo, RN [address] [place] [address] Social History Tobacco Use Types Packs/Day Years [...] on filedocumented in this encounter Care Teams Pharmacy Billing Adjudicator Relationship Specialty Start Date End Date Pcp, Lisa PCP - General General Medicine 09/22/18 10/13/18 Opal Velazquez MD [address] [place] [address] PCP - General Internal Medicine 10/14/18 documented as of this encounter
--- OUTSIDE RECORDS SUMMARY | 2025-08-12 08:48 | XMS_ITS | Patient Health Record ---
Author Organization [facility] Address [address] [address] Care Team Providers Care Cabinetmaker Supervisor Name Role Phone Opal Velazquez Primary Care Provider Unavailab le JONA CHISHOLM Unavailable [phone] Allergies No Known Allergies Reason For Referral Reason Bilateral bunions Diagnosis 1 Bunion of right foot (M21.611) Diagnosis 2 Bunion of left foot (M21.612) Referring Provider First Name Opal Referring Provider Last Name Caroline Referred Organization [facility] Referred Provider JONA CHISHOLM Referred Address [address] [place] [address] [address] ,[place], [place],[address], Referred Provider Specialty Podiatry Referral Priority Routine [...] Active Encounters Encounter Location Date Provider Diagnosis [facility] [address] [address] 11/13/2024 JONA CHISHOLM Plan Of Treatment No Information Insurance Providers Payer Name Payer Address Payer Phone Subscriber Number Group Number Insured Name Patient Relationship to Insured Coverage Start Date Coverage End Date [facility] Plan DIRECT ( REF REQ) [id number] [facility] [id number] [facility] [place] [id number] Amarilis Watkins Self - patient is the insured Medical (General) History Medical History History ICD Code Facial basal cell cancer osteoarthritis of hip iron deficiency anemia ulcerative colitis hordeolum externum (stye) Surgical History Surgery Date(Month/Year) total colectomy abdominal surgery total replacement of both hip joints status post Mohs surgery for basal cell carcinoma
--- OUTSIDE RECORDS SUMMARY | 2025-08-12 08:48 | XMS_ITS | Clinical Summary ---
Author Organization [facility] Address [address] [place] [address] Care Team Providers Care Cage Maker Machine Name Role Phone Opal Velazquez MD Primary Care Provider [phone] Allergies No known active allergies Medications vitamin [...] MANAGED MEDICARE [employer] MANAGED MEDICARE Care Teams Cage Maker Machine Relationship Specialty Start Date End Date Opal Velazquez MD [address] [place] [phone] PCP - General Internal Medicine 10/14/18
== END 2025-08-12 08:48 | disposition home or self-care (01) ==
LOC: HO.HSM 08:24
PROVIDERS: PCP Internal Medicine; Referring Provider Internal Medicine; Visit Provider Registered Nurse
DX: G25.81 Restless legs syndrome (principal)
CPT/HCPCS: 99213

== ENCOUNTER → 2025-08-12 08:23 | Outpatient (BNVA) | payer OTHER, SELFPAY | PROVIDERS: PCP Internal Medicine; Referring Provider Internal Medicine; Visit Provider Registered Nurse | DX: G25.81 Restless legs syndrome (principal) | CPT/HCPCS: 99212 ==

== ENCOUNTER 2025-09-29 08:45 | Outpatient (RCR) | payer OTHER, SELFPAY ==
[2025-09-22 14:36] VITALS: BP 138/72; PULSE 66; RESP 16; TEMP 37.1; O2SAT 99
[2025-09-29 08:43] VITALS: BP 129/59; PULSE 75; RESP 18; TEMP 36.4
== END 2025-09-29 09:48 | disposition home or self-care (01) ==
LOC: HO.INF 08:45
PROVIDERS: Visit Provider Internal Medicine Medical Oncology
DX: D50.9 Iron deficiency anemia, unspecified (principal)
CPT/HCPCS: 96365; 96374; J1439